=== PATIENT | female | born 1970 | race African-American/Black ===

== ENCOUNTER 2017-04-30 01:30 | Emergency (ER) | payer OTHER ==
[2017-04-30] MEDS ORDERED: Albuterol/Ipratropium 3.0-0.5 MG/3 ML Neb Soln NEB ONE (01:40)
--- NOTE | 2017-04-30 01:45 | EDM.PDOC ---
ED HPI GENERAL MEDICAL PROBLEM - General Stated Complaint: SHORTNESS OF BREATH, 24 WEEKS PREG Time Seen by Provider: 04/30/17 01:39 - History of Present Illness INITIAL COMMENTS - FREE TEXT/NARRATIVE: HISTORY AND PHYSICAL: History of present illness: Patient 47-year-old black female who is 24 weeks presents with concern of acute shortness of breath patient states she has had some coughing recently she denies abdominal pain or cramping denies chest pain denies known history of DVT or pulmonary embolism there's been no fever chills or other complaints Review of systems: As per history of present illness and below otherwise all systems reviewed and negative. Past medical history: As per history of present illness and as reviewed below otherwise noncontributory. Surgical history: As per history of present illness and as reviewed below otherwise noncontributory. Social history: No reported history of drug or alcohol abuse. Family history: As per history of present illness and as reviewed below otherwise noncontributory. Physical exam: HEENT: Atraumatic, normocephalic, pupils reactive, negative for conjunctival pallor or scleral icterus, mucous membranes moist, throat clear, neck supple, nontender, trachea midline. Lungs: Clear to auscultation, breath sounds equal bilaterally, chest nontender. Heart: S1S2, regular, negative for clicks, rubs, or JVD. Abdomen: Soft, nondistended, nontender. Negative for masses or hepatosplenomegaly. Negative for costovertebral tenderness. Pelvis: Stable nontender. Genitourinary: Deferred. Rectal: Deferred. Extremities: Atraumatic, negative for cords or calf pain. Neurovascular unremarkable. Neuro: Awake, alert, oriented. Cranial nerves II through XII unremarkable. Cerebellum unremarkable. Motor and sensory unremarkable throughout. Exam nonfocal. Diagnostics: CBC CMP PT/INR troponin BNP influenza screen d-dimer Therapeutics: Albuterol ipratropium nebulizer Impression: #1 24 week IUP #2 dyspnea Definitive disposition and diagnosis as appropriate pending reevaluation and review of above. 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 Musculoskeletal History: Reports: None Neurological History: Reports: None Psychiatric History: Reports: None Endocrine/Metabolic History: Reports: None Hematologic History: Reports: None Immunologic History: Reports: None Oncologic (Cancer) History: Reports: None Dermatologic History: Reports: None - Infectious Disease History Infectious Disease History: Reports: None - Past Surgical History Head Surgeries/Procedures: Reports: None Cardiovascular Surgical History: Reports: None Social & Family History - Family History Family Medical History: Noncontributory - Tobacco Use Smoking Status *Q: Never Smoker Second Hand Smoke Exposure: No - Caffeine Use Caffeine Use: Reports: None - Recreational Drug Use Recreational Drug Use: No ED ROS GENERAL - Review of Systems Review Of Systems: ROS reveals no pertinent complaints other than HPI. ED EXAM, GENERAL - Physical Exam Exam: See Below (See dictation) Course - Vital Signs Text/Narrative:: I discussed with patient differential diagnosis for her dyspnea including possible pulmonary embolism discussed risks and benefits for CT angiogram patient declined chest x-ray did demonstrate small infiltrate that may represent atelectasis versus infectious process patient was discharged on azithromycin ED course was unremarkable she follow-up with her doctor 1 today's return as needed discuss impression is #124 week intrauterine prancing #2 dyspnea #3 pneumonia Last Recorded V/S: Last Vital Signs Temp 36.6 C 04/30/17 03:19 Pulse 110 H 04/30/17 04:40 Resp 20 04/30/17 04:40 BP 109/74 04/30/17 04:40 Pulse Ox 98 04/30/17 04:40 - Orders/Labs/Meds Orders: Active Orders 24 hr Category Date Time Status EKG Documentation Completion [RC] STAT Care 04/30/17 01:39 Active RT Aerosol Therapy [RC] ASDIRECTED Care 04/30/17 01:40 Active Chest 1V Frontal [CR] Stat Exams 04/30/17 03:18 Taken Labs: Laboratory Tests 04/30/17 04/30/17 04/30/17 Range/Units 02:00 02:00 02:00 WBC 12.81 H (4.0-11.0) K/uL RBC 4.70 (4.30-5.90) M/uL Hgb 12.8 (12.0-16.0) g/dL Hct 35.8 L (36.0-46.0) % MCV 76.2 L (80.0-98.0) fL MCH 27.2 (27.0-32.0) pg MCHC 35.8 (31.0-37.0) g/dL RDW Std Deviation 47.1 (28.0-62.0) fl RDW Coeff of Brian 17 H (11.0-15.0) % Plt Count 246 (150-400) K/uL MPV 10.30 (7.40-12.00) fL Neut % (Auto) 78.6 (48.0-80.0) % Lymph % (Auto) 15.8 L (16.0-40.0) % [place] % (Auto) 4.8 (0.0-15.0) % Eos % (Auto) 0.7 (0.0-7.0) % Baso % (Auto) 0.1 (0.0-1.5) % Neut # (Auto) 10.1 H (1.4-5.7) K/uL Lymph # (Auto) 2.0 (0.6-2.4) K/uL [place] # (Auto) 0.6 (0.0-0.8) K/uL Eos # (Auto) 0.1 (0.0-0.7) K/uL Baso # (Auto) 0.0 (0.0-0.1) K/uL Nucleated RBC % 0.0 /100WBC Nucleated RBCs # 0 K/uL INR 0.92 (0.86-1.11) D-Dimer, Quantitative 2.96 H (0.0-0.52) mg/LFEU Sodium 136 (136-146) mmol/L Potassium 3.8 (3.5-5.1) mmol/L Chloride 105 (98-110) mmol/L Carbon Dioxide 22 (21-31) mmol/L BUN 6 (6.0-23.0) mg/dL Creatinine 0.7 (0.6-1.5) mg/dL Est Cr Clr Drug Dosing 88.44 mL/min Estimated GFR (MDRD) > 60.0 ml/min Glucose 115 H (60-110) mg/dL Calcium 9.5 (8.8-10.8) mg/dL Total Bilirubin 0.3 (0.1-1.5) mg/dL AST 20 (5-40) IU/L ALT 22 (8-54) IU/L Alkaline Phosphatase 113 (40-150) Troponin I < 0.10 (0.0-0.29) NG/ML B-Natriuretic Peptide (<100) PG/ML Total Protein 7.8 (6.0-8.0) g/dL Albumin 3.8 (3.5-5.0) g/dL Globulin 4.0 H (2.0-3.5) g/dL Albumin/Globulin Ratio 1.0 L (1.3-2.8) 04/30/17 Range/Units 02:00 WBC (4.0-11.0) K/uL RBC (4.30-5.90) M/uL Hgb (12.0-16.0) g/dL Hct (36.0-46.0) % MCV (80.0-98.0) fL MCH (27.0-32.0) pg MCHC (31.0-37.0) g/dL RDW Std Deviation (28.0-62.0) fl RDW Coeff of Brian (11.0-15.0) % Plt Count (150-400) K/uL MPV (7.40-12.00) fL Neut % (Auto) (48.0-80.0) % Lymph % (Auto) (16.0-40.0) % [place] % (Auto) (0.0-15.0) % Eos % (Auto) (0.0-7.0) % Baso % (Auto) (0.0-1.5) % Neut # (Auto) (1.4-5.7) K/uL Lymph # (Auto) (0.6-2.4) K/uL [place] # (Auto) (0.0-0.8) K/uL Eos # (Auto) (0.0-0.7) K/uL Baso # (Auto) (0.0-0.1) K/uL Nucleated RBC % /100WBC Nucleated RBCs # K/uL INR (0.86-1.11) D-Dimer, Quantitative (0.0-0.52) mg/LFEU Sodium (136-146) mmol/L Potassium (3.5-5.1) mmol/L Chloride (98-110) mmol/L Carbon Dioxide (21-31) mmol/L BUN (6.0-23.0) mg/dL Creatinine (0.6-1.5) mg/dL Est Cr Clr Drug Dosing mL/min Estimated GFR (MDRD) ml/min Glucose (60-110) mg/dL Calcium (8.8-10.8) mg/dL Total Bilirubin (0.1-1.5) mg/dL AST (5-40) IU/L ALT (8-54) IU/L Alkaline Phosphatase (40-150) Troponin I (0.0-0.29) NG/ML B-Natriuretic Peptide < 15 (<100) PG/ML Total Protein (6.0-8.0) g/dL Albumin (3.5-5.0) g/dL Globulin (2.0-3.5) g/dL Albumin/Globulin Ratio (1.3-2.8) Meds: Medications Discontinued Medications Generic Name Dose Route Start Last Admin Trade Name Freq PRN Reason Stop Dose Admin Albuterol/Ipratropium 3 ml 04/30/17 01:40 04/30/17 02:04 Duoneb 3.0-0.5 Mg/3 Ml NEB 04/30/17 01:41 3 ml ONETIME ONE Administration Departure - Departure Time of Disposition: 06:17 Disposition: Home, Self-Care 01 Condition: Good Clinical Impression: Pneumonia - Discharge Information Instructions: Shortness of Breath, [id number] Referrals: PCP,None [Primary Care Provider] - Forms: ED Department Discharge Additional Instructions: The following information is given to patients seen in the emergency department who are being discharged to home. This information is to outline your options for follow-up care. We provide all patients seen in our emergency department with a follow-up referral. The need for follow-up, as well as the timing and circumstances, are variable depending upon the specifics of your emergency department visit. If you don't have a primary care physician on staff, we will provide you with a referral. We always advise you to contact your personal physician following an emergency department visit to inform them of the circumstance of the visit and for follow-up with them and/or the need for any referrals to a consulting specialist. The emergency department will also refer you to a specialist when appropriate. This referral assures that you have the opportunity for followup care with a specialist. All of these measure are taken in an effort to provide you with optimal care, which includes your followup. Under all circumstances we always encourage you to contact your private physician who remains a resource for coordinating your care. When calling for followup care, please make the office aware that this follow-up is from your recent emergency room visit. If for any reason you are refused follow-up, please contact the [facility] emergency department at and asked to speak to the emergency department charge nurse. Azithromycin as prescribed follow-up primary medical doctor 1-2 days return as needed as discussed - My Orders Last 24 Hours: My Active Orders 04/30/17 01:39 EKG Documentation Completion [RC] STAT 04/30/17 01:40 RT Aerosol Therapy [RC] ASDIRECTED 04/30/17 03:18 Chest 1V Frontal [CR] Stat - Assessment/Plan Last 24 Hours: My Active Orders 04/30/17 01:39 EKG Documentation Completion [RC] STAT 04/30/17 01:40 RT Aerosol Therapy [RC] ASDIRECTED 04/30/17 03:18 Chest 1V Frontal [CR] Stat
[2017-04-30 02:28] LABS: CHLORIDE,CL 105 mmol/L (98-110); SODIUM,NA 136 mmol/L (136-146)
[2017-04-30 04:40] VITALS: BP 109/74
--- NOTE | 2017-04-30 17:58 | CR ---
EXAM DATE: 04/30/17 PATIENT'S AGE: 47 Patient: CHRISTEL VERAS Facility: [place], [place] Site . Site : 1970 Study: XRay Chest [id number] 3:46:49 AM Ordering Physician: Marcos Arambula Final Report: Indication: Chest pain Technique: Chest 1 view. Comparison: None Findings/impression: Prominent cardiac size. Mild pulmonary cephalization. Patchy atelectasis or infiltrate at the right lung base. No pneumothorax or effusion. Osseous structures intact. Dictated by Bibiana Markham MD @ Apr 30 2017 4:00AM (Electronic Signature) Report Signed by Proxy. ALISA
== END 2017-04-30 04:38 | disposition home or self-care (01) ==
LOC: MW.ED 01:30
DX: O99.512 Diseases of the respiratory system complicating pregnancy, second trimester (principal); J18.9 Pneumonia, unspecified organism; O10.912 Unspecified pre-existing hypertension complicating pregnancy, second trimester; Z79.899 Other long term (current) drug therapy; Z3A.24 24 weeks gestation of pregnancy
CPT/HCPCS: 36415; 71010; 71010-26; 80053; 83880; 84484; 85025; 85379; 85610; 87804; 93005; 99284; 99285-25

== ENCOUNTER 2017-05-28 18:58 | Emergency (ER) | payer OTHER ==
[2017-05-28] MEDS ORDERED: Sodium Chloride 0.9% 10 ML Syringe FLUSH PRN (19:23)
[2017-05-28] MEDS ORDERED: Sodium Chloride 0.9% 2.5 ML Syringe FLUSH PRN (19:23)
[2017-05-28] MEDS ORDERED: Sodium Chloride 0.9% 1,000 ML IV SCH (19:30)
--- NOTE | 2017-05-28 19:34 | EDM.PDOC ---
ED HPI GENERAL MEDICAL PROBLEM - General Chief Complaint: Respiratory Problem Stated Complaint: PT HAS DIFFICULTY BREATHING Time Seen by Provider: 05/28/17 19:18 - History of Present Illness INITIAL COMMENTS - FREE TEXT/NARRATIVE: HISTORY AND PHYSICAL: History of present illness: Patient's 47-year-old white female who is in her third trimester seen multiple times in the ER was recently admitted and had CT scan [place] chest for dyspnea that was negative for pulmonary embolism number were some changes reported possibly representing emphysematous type disease and/or asbestosis Review of systems: As per history of present illness and below otherwise all systems reviewed and negative. Past medical history: As per history of present illness and as reviewed below otherwise noncontributory. Surgical history: As per history of present illness and as reviewed below otherwise noncontributory. Social history: No reported history of drug or alcohol abuse. Family history: As per history of present illness and as reviewed below otherwise noncontributory. Physical exam: HEENT: Atraumatic, normocephalic, pupils reactive, negative for conjunctival pallor or scleral icterus, mucous membranes moist, throat clear, neck supple, nontender, trachea midline. Lungs: Clear to auscultation, breath sounds equal bilaterally, chest nontender. Heart: S1S2, tachycardic, regular, negative for clicks, rubs, or JVD. Abdomen: Soft, nondistended, nontender. Negative for masses or hepatosplenomegaly. Negative for costovertebral tenderness. Pelvis: Stable nontender. Genitourinary: Deferred. Rectal: Deferred. Extremities: Atraumatic, negative for cords or calf pain. Neurovascular unremarkable. Neuro: Awake, alert, anxious, oriented. Cranial nerves II through XII unremarkable. Cerebellum unremarkable. Motor and sensory unremarkable throughout. Exam nonfocal. Diagnostics: CBC CMP troponin BNP chest x-ray EKG Therapeutics: IV O2 monitor Impression: #1 third trimester #2 dyspnea Definitive disposition and diagnosis as appropriate pending reevaluation and review of above. denies pain Pain Score (Numeric/FACES): 0 - Related Data Allergies Allergy/AdvReac Type Severity Reaction Status Date / Time No Known Allergies Allergy Verified 05/28/17 19:12 Home Meds: Home Meds NIFEdipine [Procardia XL] 60 mg PO DAILY #30 tab.er 05/05/15 [Rx] Pnv No.95/Ferrous Fum/Folic AC [ Multivitamin Tablet] 1 tab PO DAILY [History] Past Medical History - Past Health History Medical/Surgical History: Denies Medical/Surgical History HEENT History: Reports: None Cardiovascular History: Reports: Hypertension Respiratory History: Reports: None Gastrointestinal History: Reports: None Genitourinary History: Reports: None 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 CONTROL History: Reports: 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 Musculoskeletal History: Reports: None Neurological History: Reports: None Psychiatric History: Reports: None Endocrine/Metabolic History: Reports: None Hematologic History: Reports: None Immunologic History: Reports: None Oncologic (Cancer) History: Reports: None Dermatologic History: Reports: None - Infectious Disease History Infectious Disease History: Reports: None - Past Surgical History Head Surgeries/Procedures: Reports: None Cardiovascular Surgical History: Reports: None Social & Family History - Family History Family Medical History: Noncontributory - Tobacco Use Smoking Status *Q: Never Smoker Second Hand Smoke Exposure: No - Caffeine Use Caffeine Use: Reports: None - Recreational Drug Use Recreational Drug Use: No ED ROS GENERAL - Review of Systems Review Of Systems: ROS reveals no pertinent complaints other than HPI. ED EXAM, GENERAL - Physical Exam Exam: See Below (See dictation) Course - Vital Signs Text/Narrative:: Patient has had an unremarkable emergency department course I spoke with multiple possible transfer centers of which [facility] and [facility] both were without beds I did speak with emergency department in [place] through their transfer center patient was graciously accepted and will be transferred via air medical Last Recorded V/S: Last Vital Signs Temp 37.2 C 05/28/17 20:16 Pulse 120 H 05/28/17 20:40 Resp 33 H 05/28/17 20:40 BP 132/67 05/28/17 20:40 Pulse Ox 96 05/28/17 20:40 - Orders/Labs/Meds Orders: Active Orders 24 hr Category Date Time Status Cardiac Monitoring [RC] . DIRECTED Care 05/28/17 19:22 Active EKG Documentation Completion [RC] STAT Care 05/28/17 19:22 Active Oxygen Therapy, ED [RC] ASDIRECTED Care 05/28/17 19:22 Active Pulse Oximetry [RC] ASDIRECTED Care 05/28/17 19:22 Active Chest 1V Frontal [CR] Stat Exams 01/19/18 19:23 Taken Sodium Chloride 0.9% [Normal Saline] 1,000 ml Med 05/28/17 19:30 Active IV STAT Sodium Chloride 0.9% [Saline Flush] Med 05/28/17 19:23 Active 10 ml FLUSH ASDIRECTED PRN Sodium Chloride 0.9% [Saline Flush] Med 05/28/17 19:23 Active 2.5 ml FLUSH ASDIRECTED PRN Saline Lock Insert [OM.PC] Stat Oth 05/28/17 19:22 Ordered Medication Orders Sodium Chloride (Normal Saline) 1,000 mls @ 125 mls/hr IV STAT MARY Last Admin: 05/28/17 19:43 Dose: 125 mls/hr Sodium Chloride (Saline Flush) 10 ml FLUSH ASDIRECTED PRN PRN Reason: Keep Vein Open Sodium Chloride (Saline Flush) 2.5 ml FLUSH ASDIRECTED PRN PRN Reason: Keep Vein Open Labs: Laboratory Tests 05/28/17 05/28/17 05/28/17 Range/Units 19:30 19:30 19:30 WBC 11.54 H (4.0-11.0) K/uL RBC 4.50 (4.30-5.90) M/uL Hgb 12.2 (12.0-16.0) g/dL Hct 33.9 L (36.0-46.0) % MCV 75.3 L (80.0-98.0) fL MCH 27.1 (27.0-32.0) pg MCHC 36.0 (31.0-37.0) g/dL RDW Std Deviation 46.2 (28.0-62.0) fl RDW Coeff of Brian 17 H (11.0-15.0) % Plt Count 251 (150-400) K/uL MPV 9.90 (7.40-12.00) fL Neut % (Auto) 73.8 (48.0-80.0) % Lymph % (Auto) 17.2 (16.0-40.0) % [place] % (Auto) 5.6 (0.0-15.0) % Eos % (Auto) 3.2 (0.0-7.0) % Baso % (Auto) 0.2 (0.0-1.5) % Neut # (Auto) 8.5 H (1.4-5.7) K/uL Lymph # (Auto) 2.0 (0.6-2.4) K/uL [place] # (Auto) 0.7 (0.0-0.8) K/uL Eos # (Auto) 0.4 (0.0-0.7) K/uL Baso # (Auto) 0.0 (0.0-0.1) K/uL Nucleated RBC % 0.0 /100WBC Nucleated RBCs # 0 K/uL Sodium 137 (136-146) mmol/L Potassium 3.9 (3.5-5.1) mmol/L Chloride 104 (98-110) mmol/L Carbon Dioxide 21 (21-31) mmol/L BUN 6 (6.0-23.0) mg/dL Creatinine 0.7 (0.6-1.5) mg/dL Est Cr Clr Drug Dosing 88.44 mL/min Estimated GFR (MDRD) > 60.0 ml/min Glucose 90 (60-110) mg/dL Calcium 9.5 (8.8-10.8) mg/dL Total Bilirubin 0.4 (0.1-1.5) mg/dL AST 18 (5-40) IU/L ALT 16 (8-54) IU/L Alkaline Phosphatase 149 (40-150) Troponin I < 0.10 (0.0-0.29) NG/ML B-Natriuretic Peptide < 15 (<100) PG/ML Total Protein 7.4 (6.0-8.0) g/dL Albumin 3.6 (3.5-5.0) g/dL Globulin 3.8 H (2.0-3.5) g/dL Albumin/Globulin Ratio 1.0 L (1.3-2.8) Urine Color Urine Appearance Urine pH (5.0-8.0) Ur Specific [place] (1.001-1.035) Urine Protein (NEGATIVE) mg/dL Urine Glucose (UA) (NEGATIVE) mg/dL Urine Ketones (NEGATIVE) mg/dL Urine Occult Blood (NEGATIVE) Urine Nitrite (NEGATIVE) Urine Bilirubin (NEGATIVE) Urine Urobilinogen (<2.0) EU/dL Ur Leukocyte Esterase (NEGATIVE) Urine RBC (0-2/HPF) Urine WBC (0-5/HPF) Ur Epithelial Cells (NONE-FEW) Urine Bacteria (NEGATIVE) 05/28/17 Range/Units 20:12 WBC (4.0-11.0) K/uL RBC (4.30-5.90) M/uL Hgb (12.0-16.0) g/dL Hct (36.0-46.0) % MCV (80.0-98.0) fL MCH (27.0-32.0) pg MCHC (31.0-37.0) g/dL RDW Std Deviation (28.0-62.0) fl RDW Coeff of Brian (11.0-15.0) % Plt Count (150-400) K/uL MPV (7.40-12.00) fL Neut % (Auto) (48.0-80.0) % Lymph % (Auto) (16.0-40.0) % [place] % (Auto) (0.0-15.0) % Eos % (Auto) (0.0-7.0) % Baso % (Auto) (0.0-1.5) % Neut # (Auto) (1.4-5.7) K/uL Lymph # (Auto) (0.6-2.4) K/uL [place] # (Auto) (0.0-0.8) K/uL Eos # (Auto) (0.0-0.7) K/uL Baso # (Auto) (0.0-0.1) K/uL Nucleated RBC % /100WBC Nucleated RBCs # K/uL Sodium (136-146) mmol/L Potassium (3.5-5.1) mmol/L Chloride (98-110) mmol/L Carbon Dioxide (21-31) mmol/L BUN (6.0-23.0) mg/dL Creatinine (0.6-1.5) mg/dL Est Cr Clr Drug Dosing mL/min Estimated GFR (MDRD) ml/min Glucose (60-110) mg/dL Calcium (8.8-10.8) mg/dL Total Bilirubin (0.1-1.5) mg/dL AST (5-40) IU/L ALT (8-54) IU/L Alkaline Phosphatase (40-150) Troponin I (0.0-0.29) NG/ML B-Natriuretic Peptide (<100) PG/ML Total Protein (6.0-8.0) g/dL Albumin (3.5-5.0) g/dL Globulin (2.0-3.5) g/dL Albumin/Globulin Ratio (1.3-2.8) Urine Color Urine Appearance CLEAR Urine pH 7.0 (5.0-8.0) Ur Specific [place] <= 1.005 (1.001-1.035) Urine Protein NEGATIVE (NEGATIVE) mg/dL Urine Glucose (UA) NEGATIVE (NEGATIVE) mg/dL Urine Ketones NEGATIVE (NEGATIVE) mg/dL Urine Occult Blood NEGATIVE (NEGATIVE) Urine Nitrite NEGATIVE (NEGATIVE) Urine Bilirubin NEGATIVE (NEGATIVE) Urine Urobilinogen 0.2 (<2.0) EU/dL Ur Leukocyte Esterase NEGATIVE (NEGATIVE) Urine RBC 0-1 (0-2/HPF) Urine WBC 0-1 (0-5/HPF) Ur Epithelial Cells FEW (NONE-FEW) Urine Bacteria RARE (NEGATIVE) Meds: Medications Generic Name Dose Route Start Last Admin Trade Name Freq PRN Reason Stop Dose Admin Sodium Chloride 1,000 mls @ 125 mls/hr 05/28/17 19:30 05/28/17 19:43 Normal Saline IV 125 mls/hr STAT MARY Administration Sodium Chloride 10 ml 05/28/17 19:23 Saline Flush FLUSH ASDIRECTED PRN Keep Vein Open Sodium Chloride 2.5 ml 05/28/17 19:23 Saline Flush FLUSH ASDIRECTED PRN Keep Vein Open Departure - Departure Time of Disposition: 21:18 Disposition: DC/Tfer to Acute Hospital 02 Condition: Good Clinical Impression: Dyspnea, Tachycardia, Third trimester - Discharge Information Referrals: PCP,None [Primary Care Provider] - Forms: ED Department Discharge - My Orders Last 24 Hours: My Active Orders 05/28/17 19:22 Cardiac Monitoring [RC] . DIRECTED EKG Documentation Completion [RC] STAT Oxygen Therapy, ED [RC] ASDIRECTED Pulse Oximetry [RC] ASDIRECTED Saline Lock Insert [OM.PC] Stat 05/28/17 19:23 Chest 1V Frontal [CR] Stat Sodium Chloride 0.9% [Saline Flush] 10 ml FLUSH ASDIRECTED PRN Sodium Chloride 0.9% [Saline Flush] 2.5 ml FLUSH ASDIRECTED PRN 05/28/17 19:30 Sodium Chloride 0.9% [Normal Saline] 1,000 ml IV STAT - Assessment/Plan Last 24 Hours: My Active Orders 05/28/17 19:22 Cardiac Monitoring [RC] . DIRECTED EKG Documentation Completion [RC] STAT Oxygen Therapy, ED [RC] ASDIRECTED Pulse Oximetry [RC] ASDIRECTED Saline Lock Insert [OM.PC] Stat 05/28/17 19:23 Chest 1V Frontal [CR] Stat Sodium Chloride 0.9% [Saline Flush] 10 ml FLUSH ASDIRECTED PRN Sodium Chloride 0.9% [Saline Flush] 2.5 ml FLUSH ASDIRECTED PRN 05/28/17 19:30 Sodium Chloride 0.9% [Normal Saline] 1,000 ml IV STAT
[2017-05-28 20:10] LABS: CHLORIDE,CL 104 mmol/L (98-110); SODIUM,NA 137 mmol/L (136-146)
[2017-05-28 20:40] VITALS: BP 132/67
--- NOTE | 2017-05-31 15:57 | CR ---
EXAM DATE: 05/28/17 PATIENT'S AGE: 47 Patient: CHRISTEL VERAS Facility: [place], [place] Site . Site : 1970 Study: XRay Chest [id number] 8:08:44 PM Ordering Physician: Doctor Moreno Final Report: INDICATIONS: Shortness of breath. TECHNIQUE: Chest 1 portable view. COMPARISON: Chest radiograph May 27, 2017. FINDINGS: No pneumothorax, pleural effusion or focal airspace consolidation. No pulmonary edema. Cardiac and mediastinal contours are within normal limits. Upper abdomen and osseous structures show no acute abnormality. IMPRESSION: Unremarkable portable chest. Dictated by Dariel Perez MD @ 05/28/2017 8:27:17 PM Dictated by: Dariel Perez MD @ 05/28/2017 20:27:25 (Electronic Signature) Report Signed by Proxy. [facility]oto
== END 2017-05-28 22:12 ==
LOC: MW.ED 18:58
DX: O99.89 Other specified diseases and conditions complicating pregnancy, childbirth and the puerperium (principal); R06.00 Dyspnea, unspecified; R00.0 Tachycardia, unspecified; O10.913 Unspecified pre-existing hypertension complicating pregnancy, third trimester; Z79.899 Other long term (current) drug therapy
CPT/HCPCS: 36415; 71045; 80053; 81001; 83880; 84484; 85025; 93005; 96360; 96361; 99285; J7040; 99284

== ENCOUNTER 2017-07-19 00:27 | Observation (INO) | payer OTHER | END 2017-07-19 02:05 | disposition home or self-care (01) | LOC: MW.OBCHECK 00:27 → MW.OB 00:57 | PROVIDERS: ADMIT Obstetrics & Gynecology; ATTEND Obstetrics & Gynecology | DX: O99.89 Other specified diseases and conditions complicating pregnancy, childbirth and the puerperium (principal); Z68.27 Body mass index [BMI] 27.0-27.9, adult | CPT/HCPCS: 59025 ==

== ENCOUNTER 2017-08-17 00:30 | Inpatient (IN) | payer OTHER ==
[2017-08-17] MEDS ORDERED: Tranexamic Acid 1,000 MG in Sodium Chloride 0.9% 100 ML IV PRN (01:16)
[2017-08-17] MEDS ORDERED: Lidocaine 1% 50 ML MDV INJECT PRN (01:16)
[2017-08-17] MEDS ORDERED: Butorphanol 1 MG/ML SDV IVPUSH PRN (01:16)
[2017-08-17] MEDS ORDERED: Misoprostol 25 MCG (1/4 of 100 MCG) Tab PO PRN (01:16)
[2017-08-17] MEDS ORDERED: Sodium Chloride 0.9% 10 ML Syringe FLUSH PRN (01:16)
[2017-08-17] MEDS ORDERED: Water For Irrigation,Sterile 1,000 ML Container IRR PRN (01:16)
[2017-08-17] MEDS ORDERED: Terbutaline 1 MG/ML SDV SUBCUT PRN (01:16)
[2017-08-17] MEDS ORDERED: Carboprost Tromethamine 250 MCG/1 ML Amp IM PRN (01:16)
[2017-08-17] MEDS ORDERED: Misoprostol 200 MCG Tab PO PRN (01:16)
[2017-08-17] MEDS ORDERED: Sodium Chloride 0.9% 2.5 ML Syringe FLUSH PRN (01:16)
[2017-08-17] MEDS ORDERED: Nalbuphine 10 MG/1 ML Vial IVPUSH PRN (01:16)
[2017-08-17] MEDS ORDERED: Methylergonovine 0.2 MG/1 ML Amp IM PRN (01:16)
[2017-08-17] MEDS ORDERED: Oxytocin/0.9 % Sodium Chloride 30 UNIT/500 ML BAG IV SCH ×2 (01:30)
[2017-08-17] MEDS: Lactated Ringers 1,000 ML IV SCH ×4 (06:05→14:18)
--- NOTE | 2017-08-17 09:30 | PCM.PREANE ---
Preanesthetic Assessment - Anesthesia/Transfusion/Family Hx Anesthesia History: Prior Anesthesia Without Reaction Transfusion History: No Prior Transfusion(s) - Review of Systems General: No Symptoms Pulmonary: No Symptoms Cardiovascular: No Symptoms Gastrointestinal: No Symptoms Neurological: No Symptoms Other: Reports: None - Physical Assessment Height: 5 ft 5 in Weight: 165.561 kg ASA Class: 3 Mental Status: Alert & Oriented x3 Airway Class: Mallampati = 3 Dentition: Reports: Normal Dentition Thyro-Mental Finger Breadths: 3 Mouth Opening Finger Breadths: 3 ROM/Head Extension: Limited/Partial Lungs: Clear to Auscultation, Normal Respiratory Effort, Decreased Breath Sounds Cardiovascular: Regular Rate, Regular Rhythm - Lab Values: Laboratory Last Values WBC 7.94 K/uL (4.0-11.0) 08/17/17 01:28 RBC 4.62 M/uL (4.30-5.90) 08/17/17 01:28 Hgb 12.3 g/dL (12.0-16.0) 08/17/17 01:28 Hct 34.8 % (36.0-46.0) L 08/17/17 01:28 MCV 75.3 fL (80.0-98.0) L 08/17/17 01:28 MCH 26.6 pg (27.0-32.0) L 08/17/17 01:28 MCHC 35.3 g/dL (31.0-37.0) 08/17/17 01:28 RDW Std Deviation 48.3 fl (28.0-62.0) 08/17/17 01:28 RDW Coeff of Brian 18 % (11.0-15.0) H 08/17/17 01:28 Plt Count 249 K/uL (150-400) 08/17/17 01:28 MPV 10.60 fL (7.40-12.00) 08/17/17 01:28 Blood Type O POSITIVE 08/17/17 01:28 Antibody Screen NEGATIVE 08/17/17 01:28 - Allergies Allergies/Adverse Reactions: Allergies Allergy/AdvReac Type Severity Reaction Status Date / Time No Known Allergies Allergy Verified 05/28/17 19:12 - Acknowledgements Anesthesia Type Planned: Epidural Pt an Appropriate Candidate for the Planned Anesthesia: Yes Alternatives and Risks of Anesthesia Discussed w Pt/Guardian: Yes Pt/Guardian Understands and Agrees with Anesthesia Plan: Yes PreAnesthesia Questionnaire - Past Health History Medical/Surgical History: Denies Medical/Surgical History HEENT History: Reports: None Cardiovascular History: Reports: Hypertension (Chronic) Respiratory History: Reports: Sleep Apnea, Other (See Below) (Reactive airway disease, PE has been ruled out) Gastrointestinal History: Reports: GERD Genitourinary History: Reports: None [employer]ING [employer]PER[employer]OR History: Reports: : 3 Para: 2 LMP (Approximate): Musculoskeletal History: Reports: None Neurological History: Reports: None Psychiatric History: Reports: None Endocrine/Metabolic History: Reports: Obesity/BMI 30+ (Super Morbid Obesity) Hematologic History: Reports: None Immunologic History: Reports: None Oncologic (Cancer) History: Reports: None Dermatologic History: Reports: None - Infectious Disease History Infectious Disease History: Reports: None - Past Surgical History Head Surgeries/Procedures: Reports: None Cardiovascular Surgical History: Reports: None - SUBSTANCE USE Smoking Status *Q: Never Smoker Tobacco Use Within Last Twelve Months: No Second Hand Smoke Exposure: No Recreational Drug Use History: No - HOME MEDS Home Medications: Home Meds NIFEdipine [Procardia XL] 60 mg PO DAILY #30 tab.er 05/05/15 [Rx] Pnv No.95/Ferrous Fum/Folic AC [ Multivitamin Tablet] 1 tab PO DAILY [History] - CURRENT (IN HOUSE) MEDS Current Meds: Current Medications Butorphanol Tartrate (Stadol) 1 mg IVPUSH ASDIRECTED PRN PRN Reason: Pain Carboprost Tromethamine (Hemabate Ds) 250 mcg IM ASDIRECTED PRN PRN Reason: Post Hemorrhage Lactated Ringer's (Ringers, Lactated) 1,000 mls @ 150 mls/hr IV ASDIRECTED [facility]ARY Last Admin: 08/17/17 06:05 Dose: 150 mls/hr Oxytocin/Sodium Chloride (Oxytocin 30 Unit/500 Ml-Ns) 30 unit in 500 mls @ 2 mls/hr IV TITRATE [facility]ARY; Protocol Last Titration: 08/17/17 08:23 Dose: 6 munits/min, 6 mls/hr Oxytocin/Sodium Chloride (Oxytocin 30 Unit/500 Ml-Ns) 30 unit in 500 mls @ 999 mls/hr IV TITRATE [facility]ARY Tranexamic Acid 1,000 mg/ (Sodium Chloride) 110 mls @ 660 mls/hr IV ONETIME PRN PRN Reason: Bleeding Lidocaine HCl (Xylocaine 1%) 50 ml INJECT .ONCE PRN PRN Reason: Laceration repair Methylergonovine Maleate (Methergine) 0.2 mg IM ASDIRECTED PRN PRN Reason: Post Hemorrhage Misoprostol (Cytotec) 200 mcg PO .ONCE PRN PRN Reason: Post Hemorrhage Misoprostol (Cytotec) 25 mcg PO Q4H PRN PRN Reason: Cervical Ripening Last Admin: 08/17/17 01:35 Dose: 25 mcg Nalbuphine HCl (Nubain) 10 mg IVPUSH ASDIRECTED PRN PRN Reason: Pain (severe 7-10) Sodium Chloride (Saline Flush) 10 ml FLUSH ASDIRECTED PRN PRN Reason: Keep Vein Open Sodium Chloride (Saline Flush) 2.5 ml FLUSH ASDIRECTED PRN PRN Reason: Keep Vein Open Sterile Water (Sterile Water For Irrigation) 1,000 ml IRR ASDIRECTED PRN PRN Reason: delivery Terbutaline Sulfate (Brethine) 0.25 mg SUBCUT ASDIRECTED PRN PRN Reason: Tacysystole
[2017-08-17] MEDS ORDERED: Lactated Ringers 1,000 ML IRR SCH (12:45)
[2017-08-17] MEDS ORDERED: Docusate Sodium 100 MG Cap PO PRN (16:30)
[2017-08-17] MEDS ORDERED: Benzocaine/Menthol 20%-0.5% Spray 78 GM Cannister TOP PRN (16:30)
[2017-08-17] MEDS ORDERED: Witch Hazel Medicated Pads 40/Jar TOP PRN (16:30)
[2017-08-17] MEDS ORDERED: Lanolin 100% Cream 7 GM Tube TOP PRN (16:30)
[2017-08-17] MEDS ORDERED: Bisacodyl 10 MG Supp RECTAL PRN (16:30)
[2017-08-17] MEDS ORDERED: Ibuprofen 400 MG Tab PO PRN (16:30)
[2017-08-17] MEDS ORDERED: Morphine 10 MG/ML Syringe ONE (18:52)
[2017-08-17] MEDS ORDERED: Promethazine 25 MG/ML SDV IM ONE (19:00)
[2017-08-17] MEDS ORDERED: Meperidine PF 50 MG/ML Syringe IVPUSH ONE (19:00)
[2017-08-17] MEDS ORDERED: ceFAZolin 2 GM in Premix Bag 1 BAG IV ONE (19:01)
[2017-08-17] MEDS ORDERED: Morphine 10 MG/ML Syringe IM ONE (19:02)
[2017-08-17] MEDS ORDERED: ceFAZolin/Dextrose,Iso-Osmotic 2 GM/50 ML Duplex Bag IV ONE (19:03)
[2017-08-17] MEDS: Acetaminophen 500 MG Tab PO PRN (22:47)
[2017-08-17] MEDS: oxyCODONE 5 MG Tab PO PRN (22:48)
[2017-08-18] MEDS: oxyCODONE 5 MG Tab PO PRN ×5 (01:15→21:44)
[2017-08-18] MEDS: Acetaminophen 500 MG Tab PO PRN ×2 (03:07→11:25)
[2017-08-18] MEDS: Ibuprofen 800 MG Tab PO PRN ×3 (06:07→21:44)
--- NOTE | 2017-08-18 07:16 | PCM48HPAN ---
Post Anesthesia Note - EVALUATION WITHIN 48HRS OF ANESTHETIC Vital Signs in Normal Range: Yes Patient Participated in Evaluation: Yes Respiratory Function Stable: Yes Airway Patent: Yes Cardiovascular Function Stable: Yes Hydration Status Stable: Yes Pain Control Satisfactory: Yes Nausea and Vomiting Control Satisfactory: Yes Mental Status Recovered: Yes Resp Rate: 20 - COMMENTS/OBSERVATIONS Free Text/Narrative:: Sitting up in bed and denies any complaints at this time.
[2017-08-18] MEDS ORDERED: NIFEdipine 30 MG Tab.ER PO SCH (09:00)
--- NOTE | 2017-08-18 22:15 | PCM.PNPP ---
- General Info Date of Service: 08/18/17 Admission Dx/Problem (Free Text): 47 yo s/p complicated with PPH recieved Methergine , Pitocin, transexamic acid , hemabate Subjective Update: Patient denies any complains , she has ambulated and voided , she has normal lochia Functional Status: Reports: Pain Controlled, Tolerating Diet, Ambulating, Urinating - Review of Systems General: Reports: No Symptoms HEENT: Reports: No Symptoms Pulmonary: Reports: No Symptoms Cardiovascular: Reports: No Symptoms Gastrointestinal: Reports: No Symptoms Genitourinary: Reports: No Symptoms Musculoskeletal: Reports: No Symptoms Skin: Reports: No Symptoms Neurological: Reports: No Symptoms Psychiatric: Reports: No Symptoms - General Info Date of Service: 08/18/17 - Patient Data Vital Signs - Most Recent: Last Vital Signs Temp 36.6 C 08/18/17 20:07 Pulse 115 H 08/18/17 20:07 Resp 16 08/18/17 20:07 BP 123/59 L 08/18/17 20:07 Pulse Ox 97 08/18/17 20:07 Weight - Most Recent: 165.561 kg Lab Results - Last 24 Hours: Laboratory Results - last 24 hr 08/18/17 Range/Units 05:38 Hgb 9.7 L (12.0-16.0) g/dL Hct 27.3 L (36.0-46.0) % Med Orders - Current: Current Medications Acetaminophen (Tylenol Extra Strength) 500 mg PO Q4H PRN PRN Reason: Pain Last Admin: 08/18/17 03:07 Dose: 500 mg Acetaminophen (Tylenol Extra Strength) 1,000 mg PO Q4H PRN PRN Reason: Pain Last Admin: 08/18/17 11:25 Dose: 1,000 mg Benzocaine/Menthol (Dermoplast Pain Relief 20%-0.5% [place]) 78 gm TOP ASDIRECTED PRN PRN Reason: Perineal Comfort Measure Bisacodyl (Dulcolax) 10 mg RECTAL .ONCE PRN PRN Reason: Constipation Butorphanol Tartrate (Stadol) 1 mg IVPUSH ASDIRECTED PRN PRN Reason: Pain Carboprost Tromethamine (Hemabate Ds) 250 mcg IM ASDIRECTED PRN PRN Reason: Post Hemorrhage Last Admin: 08/17/17 18:55 Dose: 250 mcg Docusate Sodium (Colace) 100 mg PO BID PRN PRN Reason: Constipation Emollient Ointment (Lansinoh Hpa) 0 gm TOP ASDIRECTED PRN PRN Reason: Sore Nipples Lactated Ringer's (Ringers, Lactated) 1,000 mls @ 150 mls/hr IV ASDIRECTED [facility] Last Admin: 08/17/17 14:18 Dose: 150 mls/hr Oxytocin/Sodium Chloride (Oxytocin 30 Unit/500 Ml-Ns) 30 unit in 500 mls @ 2 mls/hr IV TITRATE [facility]; Protocol Last Titration: 08/17/17 15:46 Dose: 0 munits/min, 0 mls/hr Oxytocin/Sodium Chloride (Oxytocin 30 Unit/500 Ml-Ns) 30 unit in 500 mls @ 999 mls/hr IV TITRATE [facility] Last Admin: 08/17/17 18:55 Dose: 999 mls/hr Tranexamic Acid 1,000 mg/ (Sodium Chloride) 110 mls @ 660 mls/hr IV ONETIME PRN PRN Reason: Bleeding Last Admin: 08/17/17 19:15 Dose: 660 mls/hr Lactated Ringer's (Ringers, Lactated) 1,000 mls @ 500 mls/hr IRR ASDIRECTED [facility] Last Admin: 08/17/17 13:07 Dose: 500 mls/hr Ibuprofen (Motrin) 400 mg PO Q4H PRN PRN Reason: Pain Ibuprofen (Motrin) 800 mg PO Q6H PRN PRN Reason: Pain Last Admin: 08/18/17 21:44 Dose: 800 mg Lidocaine HCl (Xylocaine 1%) 50 ml INJECT .ONCE PRN PRN Reason: Laceration repair Methylergonovine Maleate (Methergine) 0.2 mg IM ASDIRECTED PRN PRN Reason: Post Hemorrhage Last Admin: 08/17/17 18:45 Dose: 0.2 mg Misoprostol (Cytotec) 200 mcg PO .ONCE PRN PRN Reason: Post Hemorrhage Misoprostol (Cytotec) 25 mcg PO Q4H PRN PRN Reason: Cervical Ripening Last Admin: 08/17/17 01:35 Dose: 25 mcg Nalbuphine HCl (Nubain) 10 mg IVPUSH ASDIRECTED PRN PRN Reason: Pain (severe 7-10) Nifedipine (Procardia Xl) 60 mg PO DAILY [facility] Last Admin: 08/18/17 09:41 Dose: 60 mg Oxycodone HCl (Oxycodone) 5 mg PO Q2H PRN PRN Reason: Pain Last Admin: 08/18/17 21:44 Dose: 5 mg Sodium Chloride (Saline Flush) 10 ml FLUSH ASDIRECTED PRN PRN Reason: Keep Vein Open Sodium Chloride (Saline Flush) 2.5 ml FLUSH ASDIRECTED PRN PRN Reason: Keep Vein Open Sterile Water (Sterile Water For Irrigation) 1,000 ml IRR ASDIRECTED PRN PRN Reason: delivery Terbutaline Sulfate (Brethine) 0.25 mg SUBCUT ASDIRECTED PRN PRN Reason: Tacysystole Witch Kaylee (Tucks) 1 pad TOP ASDIRECTED PRN PRN Reason: comfort care Discontinued Medications Cefazolin Sodium/Dextrose (Ancef) Confirm Administered Dose 2 gm IV .STK-MED ONE Stop: 08/17/17 19:04 Fentanyl/Bupivacaine HCl (Gnrxxooi-Rydnt-Db 2 Mcg/Ml-0.125%) Confirm Administered Dose 100 mls @ as directed EP .STK-MED ONE Stop: 08/17/17 09:28 Cefazolin Sodium/Dextrose 2 gm (/ Premix) 50 mls @ 100 mls/hr IV ONETIME ONE Stop: 08/17/17 19:30 Last Admin: 08/17/17 19:08 Dose: 100 mls/hr Meperidine HCl (Demerol) 75 mg IVPUSH ONETIME ONE Stop: 08/17/17 19:01 Last Admin: 08/17/17 19:07 Dose: 75 mg Morphine Sulfate (Morphine) Confirm Administered Dose 10 mg .ROUTE .STK-MED ONE Stop: 08/17/17 18:53 Morphine Sulfate (Morphine) 6 mg IM ONETIME ONE Stop: 08/17/17 19:03 Promethazine HCl (Phenergan) 25 mg IM ONETIME ONE Stop: 08/17/17 19:01 Last Admin: 08/17/17 19:07 Dose: 25 mg - Infant Interaction Infant Disposition, : [place] at Bedside Support Person: - Recovery Exam Fundal Tone: Firm Fundal Level: 1 Fingerbreadths Below Umbilicus Fundal Placement: Midline Lochia Amount: Scant Lochia Color: Rubra/Red Perineum Description: Intact, Minimal Bruising/Swelling Episiotomy/Laceration: None Bladder Status: Voiding Urinary Elimination: Voided - Exam General: Alert, Oriented HEENT: Pupils Equal Neck: Supple Lungs: Clear to Auscultation Cardiovascular: Regular Rate, Regular Rhythm GI/Abdominal Exam: Normal Bowel Sounds Extremities: Normal Inspection Skin: Warm Wound/Incisions: Healing Well Neurological: No New Focal Deficit - Problem List & Annotations (1) Vaginal delivery SNOMED Code(s): 982617676 Code(s): O80 - ENCOUNTER FOR FULL-TERM UNCOMPLICATED DELIVERY Status: Acute Current Visit: Yes (2) hemorrhage SNOMED Code(s): 17389192 Code(s): O72.1 - OTHER IMMEDIATE HEMORRHAGE Status: Acute Current Visit: Yes Qualifiers: hemorrhage type: other immediate Qualified Code(s): O72.1 - Other immediate hemorrhage - Problem List Review Problem List Initiated/Reviewed/Updated: Yes - My Orders Last 24 Hours: My Active Orders 08/18/17 09:00 NIFEdipine [Procardia XL] 60 mg PO DAILY - Assessment Assessment:: 34yo s/p complicated by PPH stable , normal lochia , VSS- wnl - Plan Plan:: Routine care Will start procardia Monitor VSS and Pad count
[2017-08-19] MEDS: oxyCODONE 5 MG Tab PO PRN (02:06)
[2017-08-19] MEDS: Acetaminophen 500 MG Tab PO PRN (02:07)
--- NOTE | 2017-08-19 03:50 | OR ---
SURGEON: FORD MACDONALD DATE OF PROCEDURE: 08/17/2017 PREOPERATIVE DIAGNOSES: 34yo( as per patient) G3, P2-0-0-2 at 39 weeks 2 days admitted for induction of labor secondary to chronic hypertension, chronic proteinuria, morbid obesity, GBS negative. POSTOPERATIVE DIAGNOSIS: Status post normal spontaneous vaginal delivery. ANESTHESIA: Epidural. EBL: 300. FINDING: A live female delivered at 1602 hours, score 6 and 9. Three- vessel cord noted. Intact perineum. There was cord around the neck. The weight was 2840 g. BRIEF HISTORY: The patient is a 47-year-old, G3, P2-0-0-2 at 39 weeks 2 days who was for induction of labor secondary to chronic hypertension, well controlled on nifedipine. She also had chronic proteinuria. VE C/L/P long on admission. She received Cytotec. After Cytotec, the patient was started on Pitocin. She made changes up to 3, 50, -3. AROM was done. IUPC was placed. After IUPC was placed, Pitocin was titrated up. However, during labor course, she was noted to have some late deceleration. She was repositioned, given IV fluid bolus,and oxygen, the fetus recovered and tracing became Cat 1. She had normal labor progress. The patient became fully dilated. The patient was encouraged to push. PROCEDURE IN DETAIL: With the patient in dorsal lithotomy position, she was encouraged to push. The patient had good pushing effort. She delivered the head, followed by the shoulders. The Cord noted around the neck was reduced. After the shoulders were delivered, the body was delivered. The infant was placed on the maternal abdomen and delayed cord clamping was observed. Pitocin was running.The cord was clamped and cut. The placenta was delivered via controlled cord traction. Cord blood gases were obtained. The uterus was massaged. Hemostasis was noted.The perineum was inspected and intact perineum was noted. The patient was left with in stable condition. RENAE VIDALES /[id number] ALISA
--- NOTE | 2017-08-19 07:02 | PCM.PNPP ---
- General Info Date of Service: 08/19/17 Admission Dx/Problem (Free Text): 47 yo s/p complicated with PPH recieved Methergine , Pitocin, transexamic acid , hemabate , PPD2 Subjective Update: Denies any complains , Minimal lochia Functional Status: Reports: Pain Controlled, Tolerating Diet, Ambulating, Urinating - Review of Systems General: Reports: No Symptoms HEENT: Reports: No Symptoms Pulmonary: Reports: No Symptoms Cardiovascular: Reports: No Symptoms Gastrointestinal: Reports: No Symptoms Genitourinary: Reports: No Symptoms Musculoskeletal: Reports: No Symptoms Skin: Reports: No Symptoms Neurological: Reports: No Symptoms Psychiatric: Reports: No Symptoms - General Info Date of Service: 08/19/17 - Patient Data Vital Signs - Most Recent: Last Vital Signs Temp 36.8 C 08/19/17 04:20 Pulse 103 H 08/19/17 04:20 Resp 16 08/19/17 04:20 BP 107/74 08/19/17 04:20 Pulse Ox 98 08/19/17 04:20 Weight - Most Recent: 165.561 kg Med Orders - Current: Current Medications Acetaminophen (Tylenol Extra Strength) 500 mg PO Q4H PRN PRN Reason: Pain Last Admin: 08/19/17 02:07 Dose: 500 mg Acetaminophen (Tylenol Extra Strength) 1,000 mg PO Q4H PRN PRN Reason: Pain Last Admin: 08/18/17 11:25 Dose: 1,000 mg Benzocaine/Menthol (Dermoplast Pain Relief 20%-0.5% [place]) 78 gm TOP ASDIRECTED PRN PRN Reason: Perineal Comfort Measure Bisacodyl (Dulcolax) 10 mg RECTAL .ONCE PRN PRN Reason: Constipation Butorphanol Tartrate (Stadol) 1 mg IVPUSH ASDIRECTED PRN PRN Reason: Pain Carboprost Tromethamine (Hemabate Ds) 250 mcg IM ASDIRECTED PRN PRN Reason: Post Hemorrhage Last Admin: 08/17/17 18:55 Dose: 250 mcg Docusate Sodium (Colace) 100 mg PO BID PRN PRN Reason: Constipation Emollient Ointment (Lansinoh Hpa) 0 gm TOP ASDIRECTED PRN PRN Reason: Sore Nipples Lactated Ringer's (Ringers, Lactated) 1,000 mls @ 150 mls/hr IV ASDIRECTED [facility] Last Admin: 08/17/17 14:18 Dose: 150 mls/hr Oxytocin/Sodium Chloride (Oxytocin 30 Unit/500 Ml-Ns) 30 unit in 500 mls @ 2 mls/hr IV TITRATE [facility]; Protocol Last Titration: 08/17/17 15:46 Dose: 0 munits/min, 0 mls/hr Oxytocin/Sodium Chloride (Oxytocin 30 Unit/500 Ml-Ns) 30 unit in 500 mls @ 999 mls/hr IV TITRATE [facility] Last Admin: 08/17/17 18:55 Dose: 999 mls/hr Tranexamic Acid 1,000 mg/ (Sodium Chloride) 110 mls @ 660 mls/hr IV ONETIME PRN PRN Reason: Bleeding Last Admin: 08/17/17 19:15 Dose: 660 mls/hr Lactated Ringer's (Ringers, Lactated) 1,000 mls @ 500 mls/hr IRR ASDIRECTED [facility] Last Admin: 08/17/17 13:07 Dose: 500 mls/hr Ibuprofen (Motrin) 400 mg PO Q4H PRN PRN Reason: Pain Ibuprofen (Motrin) 800 mg PO Q6H PRN PRN Reason: Pain Last Admin: 08/18/17 21:44 Dose: 800 mg Lidocaine HCl (Xylocaine 1%) 50 ml INJECT .ONCE PRN PRN Reason: Laceration repair Methylergonovine Maleate (Methergine) 0.2 mg IM ASDIRECTED PRN PRN Reason: Post Hemorrhage Last Admin: 08/17/17 18:45 Dose: 0.2 mg Misoprostol (Cytotec) 200 mcg PO .ONCE PRN PRN Reason: Post Hemorrhage Misoprostol (Cytotec) 25 mcg PO Q4H PRN PRN Reason: Cervical Ripening Last Admin: 08/17/17 01:35 Dose: 25 mcg Nalbuphine HCl (Nubain) 10 mg IVPUSH ASDIRECTED PRN PRN Reason: Pain (severe 7-10) Nifedipine (Procardia Xl) 60 mg PO DAILY [facility] Last Admin: 08/18/17 09:41 Dose: 60 mg Oxycodone HCl (Oxycodone) 5 mg PO Q2H PRN PRN Reason: Pain Last Admin: 08/19/17 02:06 Dose: 5 mg Sodium Chloride (Saline Flush) 10 ml FLUSH ASDIRECTED PRN PRN Reason: Keep Vein Open Sodium Chloride (Saline Flush) 2.5 ml FLUSH ASDIRECTED PRN PRN Reason: Keep Vein Open Sterile Water (Sterile Water For Irrigation) 1,000 ml IRR ASDIRECTED PRN PRN Reason: delivery Terbutaline Sulfate (Brethine) 0.25 mg SUBCUT ASDIRECTED PRN PRN Reason: Tacysystole Witch Kaylee (Tucks) 1 pad TOP ASDIRECTED PRN PRN Reason: comfort care Discontinued Medications Cefazolin Sodium/Dextrose (Ancef) Confirm Administered Dose 2 gm IV .STK-MED ONE Stop: 08/17/17 19:04 Fentanyl/Bupivacaine HCl (Jezehvlv-Ddjgh-Gx 2 Mcg/Ml-0.125%) Confirm Administered Dose 100 mls @ as directed EP .STK-MED ONE Stop: 08/17/17 09:28 Cefazolin Sodium/Dextrose 2 gm (/ Premix) 50 mls @ 100 mls/hr IV ONETIME ONE Stop: 08/17/17 19:30 Last Admin: 08/17/17 19:08 Dose: 100 mls/hr Meperidine HCl (Demerol) 75 mg IVPUSH ONETIME ONE Stop: 08/17/17 19:01 Last Admin: 08/17/17 19:07 Dose: 75 mg Morphine Sulfate (Morphine) Confirm Administered Dose 10 mg .ROUTE .STK-MED ONE Stop: 08/17/17 18:53 Morphine Sulfate (Morphine) 6 mg IM ONETIME ONE Stop: 08/17/17 19:03 Promethazine HCl (Phenergan) 25 mg IM ONETIME ONE Stop: 08/17/17 19:01 Last Admin: 08/17/17 19:07 Dose: 25 mg - Infant Interaction Disposition, : [place] at Bedside Support Person: - Recovery Exam Fundal Tone: Firm Fundal Level: 1 Fingerbreadths Below Umbilicus Fundal Placement: Midline Lochia Amount: Scant Lochia Color: Rubra/Red Perineum Description: Intact, Minimal Bruising/Swelling Episiotomy/Laceration: None Bladder Status: Voiding Urinary Elimination: Voided - Exam General: Alert, Oriented HEENT: Pupils Equal Neck: Supple Lungs: Clear to Auscultation Cardiovascular: Regular Rate, Regular Rhythm Extremities: Normal Inspection Skin: Warm Wound/Incisions: Healing Well Neurological: No New Focal Deficit Psy/Mental Status: Alert - Problem List & Annotations (1) Vaginal delivery SNOMED Code(s): 289726323 Code(s): O80 - ENCOUNTER FOR FULL-TERM UNCOMPLICATED DELIVERY Status: Acute Current Visit: Yes (2) hemorrhage SNOMED Code(s): 66594577 Code(s): O72.1 - OTHER IMMEDIATE HEMORRHAGE Status: Acute Current Visit: Yes Qualifiers: hemorrhage type: other immediate Qualified Code(s): O72.1 - Other immediate hemorrhage - Problem List Review Problem List Initiated/Reviewed/Updated: Yes - My Orders Last 24 Hours: My Active Orders 08/18/17 09:00 NIFEdipine [Procardia XL] 60 mg PO DAILY 08/19/17 22:16 Ready for Discharge [RC] PER UNIT ROUTINE - Assessment Assessment:: 34yo s/p complicated by PPH stable , normal lochia , VSS- wnl , PPD 2 - Plan Plan:: Discharge home
[2017-08-19] MEDS: Ibuprofen 800 MG Tab PO PRN (07:36)
[2017-08-19] MEDS ORDERED: NIFEdipine 30 MG Tab.ER PO SCH (09:00)
[2017-08-19 09:08] VITALS: BP 149/78
== END 2017-08-19 09:55 | disposition home or self-care (01) | DRG 774 ==
LOC: MW.OBCHECK 00:30 → MW.OB 00:35 → MW.OBCHECK 01:16 → OBSVTOIN 16:02 → MW.OB 22:56
PROVIDERS: ADMIT Obstetrics & Gynecology; ATTEND Obstetrics & Gynecology
PROC: 10E0XZZ Delivery of Products of Conception, External Approach (ICD-10-PCS; principal; 2017-08-17)
PROC: 10907ZC Drainage of Amniotic Fluid, Therapeutic from Products of Conception, Via Natural or Artificial Opening (ICD-10-PCS; 2017-08-17)
PROC: 3E0P7VZ Introduction of Hormone into Female Reproductive, Via Natural or Artificial Opening (ICD-10-PCS; 2017-08-17)
PROC: 10H07YZ Insertion of Other Device into Products of Conception, Via Natural or Artificial Opening (ICD-10-PCS; 2017-08-17)
DX: O99.214 Obesity complicating childbirth (principal); O10.92 Unspecified pre-existing hypertension complicating childbirth; Z68.44 Body mass index [BMI] 60.0-69.9, adult; Z37.0 Single live birth; E66.01 Morbid (severe) obesity due to excess calories; Z3A.39 39 weeks gestation of pregnancy; O69.81X0 Labor and delivery complicated by cord around neck, without compression, not applicable or unspecified; O76 Abnormality in fetal heart rate and rhythm complicating labor and delivery; O72.1 Other immediate postpartum hemorrhage
CPT/HCPCS: 36415; 59025; 59409; 85014; 85018; 85027; 85384; 85610; 85730; A9270-GY; J0690; J2175; J2210; J2550; J2590; J7030; J7120

== ENCOUNTER 2017-08-20 22:01 | Observation (INO) | payer OTHER ==
--- NOTE | 2017-08-20 22:15 | EDM.PDOC ---
ED HPI GENERAL MEDICAL PROBLEM - General Chief Complaint: Cardiovascular Problem Stated Complaint: CHEST PAIN Time Seen by Provider: 08/20/17 22:12 - History of Present Illness INITIAL COMMENTS - FREE TEXT/NARRATIVE: HISTORY AND PHYSICAL: History of present illness: Patient is a 47-year-old black female who is 3 days with his head chronic dyspnea and has been extensively worked up in to date has not received a definitive diagnosis patient is well known to me she is seen by myself during her and multiple occasions and did get admitted on one occasion got a CT angiogram on another occasion and was transferred on another occasion. I reviewed records from [place] in which she was evaluated by pulmonology felt might be a reactive airway component she is currently on inhalers at home. Review of systems: As per history of present illness and below otherwise all systems reviewed and negative. Past medical history: As per history of present illness and as reviewed below otherwise noncontributory. Surgical history: As per history of present illness and as reviewed below otherwise noncontributory. Social history: No reported history of drug or alcohol abuse. Family history: As per history of present illness and as reviewed below otherwise noncontributory. Physical exam: HEENT: Atraumatic, normocephalic, pupils reactive, negative for conjunctival pallor or scleral icterus, mucous membranes moist, throat clear, neck supple, nontender, trachea midline. Lungs: Diminished no rhonchi crackles or wheezing noted, breath sounds equal bilaterally, chest nontender. Heart: S1S2, tachycardic regular, negative for clicks, rubs, or JVD. Abdomen: Soft, nondistended, nontender. Negative for masses or hepatosplenomegaly. Negative for costovertebral tenderness. Pelvis: Stable nontender. Genitourinary: Deferred. Rectal: Deferred. Extremities: Atraumatic, negative for cords or calf pain. Neurovascular unremarkable. Neuro: Awake, alert, oriented. Cranial nerves II through XII unremarkable. Cerebellum unremarkable. Motor and sensory unremarkable throughout. Exam nonfocal. Diagnostics: CBC CMP PT/INR troponin BNP ABG chest x-ray EKG Therapeutics: IV O2 monitor Impression: #1 chronic intermittent dyspnea #2 3 days #3 rule out obstructive lung disease #4 tachycardia Definitive disposition and diagnosis as appropriate pending reevaluation and review of above. no pain Pain Score (Numeric/FACES): 0 - Related Data Allergies Allergy/AdvReac Type Severity Reaction Status Date / Time No Known Allergies Allergy Verified 08/20/17 22:07 Home Meds: Home Meds Pnv No.95/Ferrous Fum/Folic AC [ Multivitamin Tablet] 1 tab PO DAILY [History] NIFEdipine [Procardia XL] 30 mg PO DAILY 08/20/17 [History] Past Medical History - Past Health History Medical/Surgical History: Denies Medical/Surgical History HEENT History: Reports: None Cardiovascular History: Reports: Hypertension (Chronic) Respiratory History: Reports: Sleep Apnea, Other (See Below) (Reactive airway disease, PE has been ruled out) Gastrointestinal History: Reports: GERD Genitourinary History: Reports: None [employer] History: Reports: Musculoskeletal History: Reports: None Neurological History: Reports: None Psychiatric History: Reports: None Endocrine/Metabolic History: Reports: Obesity/BMI 30+ (Super Morbid Obesity) Hematologic History: Reports: None Immunologic History: Reports: None Oncologic (Cancer) History: Reports: None Dermatologic History: Reports: None - Infectious Disease History Infectious Disease History: Reports: None - Past Surgical History Head Surgeries/Procedures: Reports: None Cardiovascular Surgical History: Reports: None Social & Family History - Family History Family Medical History: Noncontributory - Tobacco Use Smoking Status *Q: Never Smoker Second Hand Smoke Exposure: No - Caffeine Use Caffeine Use: Reports: Tea - Recreational Drug Use Recreational Drug Use: No ED ROS GENERAL - Review of Systems Review Of Systems: ROS reveals no pertinent complaints other than HPI. ED EXAM, GENERAL - Physical Exam Exam: See Below (See dictation) Course - Vital Signs Last Recorded V/S: Last Vital Signs Temp 36.4 C 08/20/17 22:07 Pulse 130 H 08/20/17 22:07 Resp 20 08/20/17 22:07 BP 129/59 L 08/20/17 22:07 Pulse Ox 98 08/20/17 22:07 - Orders/Labs/Meds Orders: Active Orders 24 hr Category Date Time Status EKG 12 Lead [EKG Documentation Completion] [RC] STAT Care 08/20/17 22:05 Active Chest 1V Frontal [CR] Stat Exams 08/20/17 22:05 Taken Labs: Laboratory Tests 08/20/17 08/20/17 08/20/17 Range/Units 22:12 22:12 22:12 WBC 11.94 H (4.0-11.0) K/uL RBC 3.24 L (4.30-5.90) M/uL Hgb 8.7 L (12.0-16.0) g/dL Hct 24.8 L (36.0-46.0) % MCV 76.5 L (80.0-98.0) fL MCH 26.9 L (27.0-32.0) pg MCHC 35.1 (31.0-37.0) g/dL RDW Std Deviation 52.0 (28.0-62.0) fl RDW Coeff of Brian 19 H (11.0-15.0) % Plt Count 280 (150-400) K/uL MPV 9.90 (7.40-12.00) fL Add Manual Diff YES Neutrophils % (Manual) 72 (48.0-80.0) % Band Neutrophils % 2 % Lymphocytes % (Manual) 20 (16.0-40.0) % Monocytes % (Manual) 5 (0.0-15.0) % Eosinophils % (Manual) 1 (0.0-7.0) % Nucleated RBC % 0.5 /100WBC Absolute Seg Neuts 8.6 H (1.4-5.7) Band Neutrophils # 0.2 Lymphocytes # (Manual) 2.4 (0.6-2.4) Monocytes # (Manual) 0.6 (0.0-0.8) Eosinophils # (Manual) 0.1 (0.0-0.7) Nucleated RBCs # 0 K/uL ABG pH (7.35-7.45) ABG pCO2 (35-45) mmHG ABG pO2 (75-100) mmHG ABG HCO3 (22-26) mEq/L ABG Total CO2 ABG Base Excess (-2.0-2.0) Sodium 141 (136-145) mmol/L Potassium 3.2 L (3.5-5.1) mmol/L Chloride 105 (98-107) mmol/L Carbon Dioxide 24.3 (21.0-32.0) mmol/L BUN 8 (7.0-18.0) mg/dL Creatinine 1.1 H (0.6-1.0) mg/dL Est Cr Clr Drug Dosing 56.28 mL/min Estimated GFR (MDRD) > 60.0 ml/min Glucose 172 H (74-106) mg/dL Calcium 9.2 (8.5-10.1) mg/dL Total Bilirubin 0.1 L (0.2-1.0) mg/dL AST 69 H (15-37) IU/L ALT 65 H (14-63) IU/L Alkaline Phosphatase 170 H (46-116) U/L CK-MB (CK-2) 0.7 (0-3.6) ng/mL Troponin I < 0.050 (0.000-0.056) ng/mL B-Natriuretic Peptide 145 H (<100) PG/ML Total Protein 7.0 (6.4-8.2) g/dL Albumin 2.4 L (3.4-5.0) g/dL Globulin 4.6 H (2.0-3.5) g/dL Albumin/Globulin Ratio 0.5 L (1.3-2.8) / Range/Units 22:20 WBC (4.0-11.0) K/uL RBC (4.30-5.90) M/uL Hgb (12.0-16.0) g/dL Hct (36.0-46.0) % MCV (80.0-98.0) fL MCH (27.0-32.0) pg MCHC (31.0-37.0) g/dL RDW Std Deviation (28.0-62.0) fl RDW Coeff of Brian (11.0-15.0) % Plt Count (150-400) K/uL MPV (7.40-12.00) fL Add Manual Diff Neutrophils % (Manual) (48.0-80.0) % Band Neutrophils % % Lymphocytes % (Manual) (16.0-40.0) % Monocytes % (Manual) (0.0-15.0) % Eosinophils % (Manual) (0.0-7.0) % Nucleated RBC % /100WBC Absolute Seg Neuts (1.4-5.7) Band Neutrophils # Lymphocytes # (Manual) (0.6-2.4) Monocytes # (Manual) (0.0-0.8) Eosinophils # (Manual) (0.0-0.7) Nucleated RBCs # K/uL ABG pH 7.474 H (7.35-7.45) ABG pCO2 30 L (35-45) mmHG ABG pO2 64 L (75-100) mmHG ABG HCO3 22 (22-26) mEq/L ABG Total CO2 21.1 ABG Base Excess -0.8 (-2.0-2.0) Sodium (136-145) mmol/L Potassium (3.5-5.1) mmol/L Chloride (98-107) mmol/L Carbon Dioxide (21.0-32.0) mmol/L BUN (7.0-18.0) mg/dL Creatinine (0.6-1.0) mg/dL Est Cr Clr Drug Dosing mL/min Estimated GFR (MDRD) ml/min Glucose (74-106) mg/dL Calcium (8.5-10.1) mg/dL Total Bilirubin (0.2-1.0) mg/dL AST (15-37) IU/L ALT (14-63) IU/L Alkaline Phosphatase (46-116) U/L CK-MB (CK-2) (0-3.6) ng/mL Troponin I (0.000-0.056) ng/mL B-Natriuretic Peptide (<100) PG/ML Total Protein (6.4-8.2) g/dL Albumin (3.4-5.0) g/dL Globulin (2.0-3.5) g/dL Albumin/Globulin Ratio (1.3-2.8) Departure - Departure Time of Disposition: 23:21 Disposition: Refer to Observation Condition: Fair Clinical Impression: Dyspnea, Tachycardia Referrals: PCP,None [Primary Care Provider] - Forms: ED Department Discharge - My Orders Last 24 Hours: My Active Orders 08/20/17 22:05 EKG 12 Lead [EKG Documentation Completion] [RC] STAT Chest 1V Frontal [CR] Stat - Assessment/Plan Last 24 Hours: My Active Orders 08/20/17 22:05 EKG 12 Lead [EKG Documentation Completion] [RC] STAT Chest 1V Frontal [CR] Stat
[2017-08-20 22:56] LABS: CHLORIDE,CL 105 mmol/L (98-107); SODIUM,NA 141 mmol/L (136-145)
[2017-08-20] MEDS ORDERED: methylPREDNISolone Sodium Succinate 125 MG/2 ML SDV IVPUSH ONE (23:12)
[2017-08-20] MEDS ORDERED: Albuterol/Ipratropium 3.0-0.5 MG/3 ML Neb Soln NEB ONE (23:30)
[2017-08-21] MEDS ORDERED: Acetaminophen 325 MG Tab PO PRN (00:24)
[2017-08-21] MEDS ORDERED: Potassium Chloride 20 MEQ Tab.ER PO ONE (00:25)
[2017-08-21] MEDS: methylPREDNISolone Sodium Succinate 125 MG/2 ML SDV IVPUSH SCH ×2 (05:04→10:15)
[2017-08-21 06:52] LABS: CHLORIDE,CL 104 mmol/L (98-107); SODIUM,NA 141 mmol/L (136-145)
[2017-08-21] MEDS: Albuterol/Ipratropium 3.0-0.5 MG/3 ML Neb Soln NEB SCH ×2 (07:19→11:32)
[2017-08-21 08:10] VITALS: BP 151/94
[2017-08-21] MEDS ORDERED: NIFEdipine 30 MG Tab.ER PO SCH (09:00)
--- NOTE | 2017-08-21 11:37 | PCM.HP ---
H&P History of Present Illness - General Admit Problem/Dx: Admission Diagnosis/Problem Admission Diagnosis/Problem Dyspnea - History of Present Illness Initial Comments - Free Text/Narative: 47 yo female who sis three days post- who presents to the ED with complaints of shortness of breath. Patient reports that at night she just could not get enough air. During her she was worked up by cardiology and pulmonology. She is on inhalers for reactive airway disease and the plan was to have PFTs after delivery. She states her prior doctors thougth it was her wieght and that was causing her dyspnea. headache Pain Score (Numeric/FACES): 4 - Related Data Allergies/Adverse Reactions: Allergies Allergy/AdvReac Type Severity Reaction Status Date / Time No Known Allergies Allergy Verified 08/20/17 22:07 Home Medications: Home Meds Pnv No.95/Ferrous Fum/Folic AC [ Multivitamin Tablet] 1 tab PO DAILY [History] NIFEdipine [Procardia XL] 30 mg PO DAILY 08/20/17 [History] Albuterol [IJD: Albuterol HFA] 1 puff INH Q6HR #8 gm 08/21/17 [Rx] Ipratropium [Atrovent HFA] 2 puff INH Q4H PRN 08/21/17 [History] Prednisone [IJD: predniSONE] 40 mg PO WITHBREAKFAST #6 tab 08/21/17 [Rx] Past Medical History - Past Health History Medical/Surgical History: Denies Medical/Surgical History HEENT History: Reports: None Cardiovascular History: Reports: Hypertension Respiratory History: Reports: Sleep Apnea, Other (See Below) Gastrointestinal History: Reports: GERD Genitourinary History: Reports: None [employer] History: Reports: Musculoskeletal History: Reports: None Neurological History: Reports: None Psychiatric History: Reports: None Endocrine/Metabolic History: Reports: Obesity/BMI 30+ Hematologic History: Reports: None Immunologic History: Reports: None Oncologic (Cancer) History: Reports: None Dermatologic History: Reports: None - Infectious Disease History Infectious Disease History: Reports: None - Past Surgical History Head Surgeries/Procedures: Reports: None Cardiovascular Surgical History: Reports: None Social & Family History - Family History Family Medical History: Noncontributory - Tobacco Use Smoking Status *Q: Never Smoker Second Hand Smoke Exposure: No - Caffeine Use Caffeine Use: Reports: None - Recreational Drug Use Recreational Drug Use: No H&P Review of Systems - Review of Systems: Review Of Systems: ROS reveals no pertinent complaints other than HPI. Exam - Exam Exam: See Below - Vital Signs Vital Signs: Last Vital Signs Temp 36.2 C 08/21/17 08:00 Pulse 107 H 08/21/17 08:00 Resp 20 08/21/17 08:00 BP 151/94 H 08/21/17 08:09 Pulse Ox 95 08/21/17 08:00 Weight: 163.8 kg - Exam General: Alert, Oriented Lungs: Clear to Auscultation, Normal Respiratory Effort. No: Crackles, Rales, Wheezing Cardiovascular: Regular Rate, Regular Rhythm GI/Abdominal Exam: Normal Bowel Sounds, Soft, Non-Tender, No Distention Extremities: Non-Tender, No Pedal Edema Skin: Warm, Dry, Intact Neurological: No: Focal Deficit - Patient Data Lab Results Last 24 hrs: Laboratory Results - last 24 hr 08/20/17 08/20/17 08/20/17 Range/Units 22:12 22:12 22:12 WBC 11.94 H (4.0-11.0) K/uL RBC 3.24 L (4.30-5.90) M/uL Hgb 8.7 L (12.0-16.0) g/dL Hct 24.8 L (36.0-46.0) % MCV 76.5 L (80.0-98.0) fL MCH 26.9 L (27.0-32.0) pg MCHC 35.1 (31.0-37.0) g/dL RDW Std Deviation 52.0 (28.0-62.0) fl RDW Coeff of Brian 19 H (11.0-15.0) % Plt Count 280 (150-400) K/uL MPV 9.90 (7.40-12.00) fL Neut % (Auto) (48.0-80.0) % Lymph % (Auto) (16.0-40.0) % [place] % (Auto) (0.0-15.0) % Eos % (Auto) (0.0-7.0) % Baso % (Auto) (0.0-1.5) % Neut # (Auto) (1.4-5.7) K/uL Lymph # (Auto) (0.6-2.4) K/uL [place] # (Auto) (0.0-0.8) K/uL Eos # (Auto) (0.0-0.7) K/uL Baso # (Auto) (0.0-0.1) K/uL Add Manual Diff YES Neutrophils % (Manual) 72 (48.0-80.0) % Band Neutrophils % 2 % Lymphocytes % (Manual) 20 (16.0-40.0) % Monocytes % (Manual) 5 (0.0-15.0) % Eosinophils % (Manual) 1 (0.0-7.0) % Nucleated RBC % 0.5 /100WBC Absolute Seg Neuts 8.6 H (1.4-5.7) Band Neutrophils # 0.2 Lymphocytes # (Manual) 2.4 (0.6-2.4) Monocytes # (Manual) 0.6 (0.0-0.8) Eosinophils # (Manual) 0.1 (0.0-0.7) Nucleated RBCs # 0 K/uL ABG pH (7.35-7.45) ABG pCO2 (35-45) mmHG ABG pO2 (75-100) mmHG ABG HCO3 (22-26) mEq/L ABG Total CO2 ABG Base Excess (-2.0-2.0) Sodium 141 (136-145) mmol/L Potassium 3.2 L (3.5-5.1) mmol/L Chloride 105 (98-107) mmol/L Carbon Dioxide 24.3 (21.0-32.0) mmol/L BUN 8 (7.0-18.0) mg/dL Creatinine 1.1 H (0.6-1.0) mg/dL Est Cr Clr Drug Dosing 56.28 mL/min Estimated GFR (MDRD) > 60.0 ml/min Glucose 172 H (74-106) mg/dL Calcium 9.2 (8.5-10.1) mg/dL Total Bilirubin 0.1 L (0.2-1.0) mg/dL AST 69 H (15-37) IU/L ALT 65 H (14-63) IU/L Alkaline Phosphatase 170 H (46-116) U/L CK-MB (CK-2) 0.7 (0-3.6) ng/mL Troponin I < 0.050 (0.000-0.056) ng/mL B-Natriuretic Peptide 145 H (<100) PG/ML Total Protein 7.0 (6.4-8.2) g/dL Albumin 2.4 L (3.4-5.0) g/dL Globulin 4.6 H (2.0-3.5) g/dL Albumin/Globulin Ratio 0.5 L (1.3-2.8) 08/20/17 08/21/17 08/21/17 Range/Units 22:20 05:45 05:45 WBC 10.53 (4.0-11.0) K/uL RBC 3.61 L (4.30-5.90) M/uL Hgb 9.5 L (12.0-16.0) g/dL Hct 27.4 L (36.0-46.0) % MCV 75.9 L (80.0-98.0) fL MCH 26.3 L (27.0-32.0) pg MCHC 34.7 (31.0-37.0) g/dL RDW Std Deviation 51.5 (28.0-62.0) fl RDW Coeff of Brian 19 H (11.0-15.0) % Plt Count 317 (150-400) K/uL MPV 10.40 (7.40-12.00) fL Neut % (Auto) 85.3 H (48.0-80.0) % Lymph % (Auto) 13.3 L (16.0-40.0) % [place] % (Auto) 0.9 (0.0-15.0) % Eos % (Auto) 0.3 (0.0-7.0) % Baso % (Auto) 0.2 (0.0-1.5) % Neut # (Auto) 9.0 H (1.4-5.7) K/uL Lymph # (Auto) 1.4 (0.6-2.4) K/uL [place] # (Auto) 0.1 (0.0-0.8) K/uL Eos # (Auto) 0.0 (0.0-0.7) K/uL Baso # (Auto) 0.0 (0.0-0.1) K/uL Add Manual Diff Neutrophils % (Manual) (48.0-80.0) % Band Neutrophils % % Lymphocytes % (Manual) (16.0-40.0) % Monocytes % (Manual) (0.0-15.0) % Eosinophils % (Manual) (0.0-7.0) % Nucleated RBC % 0.0 /100WBC Absolute Seg Neuts (1.4-5.7) Band Neutrophils # Lymphocytes # (Manual) (0.6-2.4) Monocytes # (Manual) (0.0-0.8) Eosinophils # (Manual) (0.0-0.7) Nucleated RBCs # 0 K/uL ABG pH 7.474 H (7.35-7.45) ABG pCO2 30 L (35-45) mmHG ABG pO2 64 L (75-100) mmHG ABG HCO3 22 (22-26) mEq/L ABG Total CO2 21.1 ABG Base Excess -0.8 (-2.0-2.0) Sodium 141 (136-145) mmol/L Potassium 4.0 (3.5-5.1) mmol/L Chloride 104 (98-107) mmol/L Carbon Dioxide 24.7 (21.0-32.0) mmol/L BUN 7 (7.0-18.0) mg/dL Creatinine 0.7 (0.6-1.0) mg/dL Est Cr Clr Drug Dosing 88.44 mL/min Estimated GFR (MDRD) > 60.0 ml/min Glucose 141 H (74-106) mg/dL Calcium 9.6 (8.5-10.1) mg/dL Total Bilirubin (0.2-1.0) mg/dL AST (15-37) IU/L ALT (14-63) IU/L Alkaline Phosphatase (46-116) U/L CK-MB (CK-2) (0-3.6) ng/mL Troponin I (0.000-0.056) ng/mL B-Natriuretic Peptide (<100) PG/ML Total Protein (6.4-8.2) g/dL Albumin (3.4-5.0) g/dL Globulin (2.0-3.5) g/dL Albumin/Globulin Ratio (1.3-2.8) Result Diagrams: 08/21/17 05:45 04/14/18 05:45 Problem List Initiated/Reviewed/Updated: Yes Orders Last 24hrs: Active Orders 24 hr Category Date Time Status Patient Status [ADT] Stat ADT 08/20/17 23:23 Active RT Aerosol Therapy [RC] ASDIRECTED Care 08/20/17 23:30 Active RT Aerosol Therapy [RC] ASDIRECTED Care 08/21/17 00:24 Active Ready for Discharge [RC] PER UNIT ROUTINE Care 08/21/17 11:31 Ordered Bank Officer Discontinue [Cardiac Monitoring Care 08/21/17 11:11 Active Discontinue] [RC] Click to Edit Telemetry Monitoring [Cardiac Monitoring] [RC] Q8H Care 08/20/17 23:30 Active Regular Diet [DIET] Diet 08/21/17 Breakfast Active Chest 1V Frontal [CR] Stat Exams 08/20/17 22:05 Taken Acetaminophen [Tylenol] Med 08/21/17 00:24 Active 650 mg PO Q4H PRN Albuterol/Ipratropium [DuoNeb 3.0-0.5 MG/3 ML] Med 08/21/17 06:00 Active 3 ml NEB Q6HRRT NIFEdipine [Procardia XL] Med 08/21/17 09:00 Active 30 mg PO DAILY methylPREDNISolone Sod Succ [Solu-MEDROL] Med 08/21/17 05:00 Active 125 mg IVPUSH Q6H Sequential Compression Device [OM.PC] Routine Oth 08/21/17 00:27 Ordered Medication Orders Acetaminophen (Tylenol) 650 mg PO Q4H PRN PRN Reason: Pain Last Admin: 08/21/17 00:53 Dose: 650 mg Albuterol/Ipratropium (Duoneb 3.0-0.5 Mg/3 Ml) 3 ml NEB Q6HRRT [facility] Last Admin: 08/21/17 11:32 Dose: 3 ml Admin: 08/21/17 07:19 Dose: 3 ml Methylprednisolone Sodium Succinate (Solu-Medrol) 125 mg IVPUSH Q6H [facility] Last Admin: 08/21/17 10:15 Dose: 125 mg Admin: 08/21/17 05:04 Dose: 125 mg Nifedipine (Procardia Xl) 30 mg PO DAILY [facility] Last Admin: 08/21/17 08:09 Dose: 30 mg Assessment/Plan Comment:: 47 yo female who was observed overnight due to dyspnea. She is feeling much better this morning. She was treated with solumedrol and duonbes. I suspect she likely has bronchitis. Patient is requesting discharge. She is to follow up with her state archivist and her PCP/
--- NOTE | 2017-08-23 09:38 | CR ---
EXAM DATE: 08/20/17 PATIENT'S AGE: 47 Patient: CHRISTEL VERAS Facility: [place], [place] Site . Site : 1970 Study: XRay Chest [id number] 10:[id number] PM Ordering Physician: Doctor Moreno Final Report: INDICATION: Shortness of breath, dizziness and palpitations. TECHNIQUE: Chest 1 views COMPARISON: May 28, 2017 FINDINGS: Cardiovascular and mediastinum: Heart size and vasculature are normal in caliber and appearance. Lungs and pleural spaces: Lungs are clear. No sign of infiltrate or mass. No sign of pleural effusion. No pneumothorax. Bones and soft tissues: No significant findings. IMPRESSION: No acute findings and no significant changes from the prior exam. Dictated by Anup Alaniz MD @ Aug 20 2017 10:46PM (Electronic Signature) Report Signed by Proxy. ALISA
== END 2017-08-21 11:48 | disposition home or self-care (01) ==
LOC: MW.ED 22:01 → MW.ICU 23:23
PROVIDERS: ADMIT Internal Medicine; ATTEND Internal Medicine
DX: O99.53 Diseases of the respiratory system complicating the puerperium (principal); R06.00 Dyspnea, unspecified; O16.5 Unspecified maternal hypertension, complicating the puerperium; G47.30 Sleep apnea, unspecified; O99.63 Diseases of the digestive system complicating the puerperium; K21.9 Gastro-esophageal reflux disease without esophagitis; O99.215 Obesity complicating the puerperium; E66.9 Obesity, unspecified; Z79.899 Other long term (current) drug therapy; Z68.30 Body mass index [BMI] 30.0-30.9, adult
CPT/HCPCS: 36415; 36600; 71045; 80048; 80053; 82553; 82803; 83880; 84484; 85025; 93005; 94640; 96374; 99285; A9270; J2930; 96376; 99284; G0378

== ENCOUNTER 2020-01-23 20:46 | Emergency (ER) | payer OTHER ==
--- NOTE | 2020-01-23 21:33 | EDM.PDOC ---
ED HPI GENERAL MEDICAL PROBLEM - General Chief Complaint: Fever Stated Complaint: FEVER/BODY ACHES/WEAKNESS Time Seen by Provider: 01/23/20 21:09 Source of Information: Reports: Patient History Limitations: Reports: No Limitations - History of Present Illness INITIAL COMMENTS - FREE TEXT/NARRATIVE: Patient presents reporting a 2-day history of subjective fever, cough, weakness, dizzy, body aches and today, some ear fullness. No sore throat, shortness of breath, chest pain, runny nose. He has a history of controlled hypertension and obesity. She does not smoke. Left Middle Back Pain Score (Numeric/FACES): 4 - Related Data Allergies Allergy/AdvReac Type Severity Reaction Status Date / Time No Known Allergies Allergy Verified 05/05/19 08:10 Home Meds: Home Meds Aspirin [Low Dose Aspirin EC] 81 mg PO DAILY 05/05/19 [History] Losartan/Hydrochlorothiazide [Losartan-HCTZ 50-12.5 MG] 1 tab PO DAILY 05/05/19 [History] NIFEdipine [Nifedipine ER] 60 mg PO DAILY 05/05/19 [History] Omeprazole 40 mg PO DAILY 05/05/19 [History] Past Medical History - Past Health History Medical/Surgical History: Denies Medical/Surgical History HEENT History: Reports: None Cardiovascular History: Reports: Hypertension Respiratory History: Reports: Sleep Apnea, Other (See Below) Gastrointestinal History: Reports: GERD Genitourinary History: Reports: None 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: Musculoskeletal History: Reports: None Neurological History: Reports: None Psychiatric History: Reports: None Endocrine/Metabolic History: Reports: Obesity/BMI 30+ Hematologic History: Reports: None Immunologic History: Reports: None Oncologic (Cancer) History: Reports: None Dermatologic History: Reports: None - Infectious Disease History Infectious Disease History: Reports: Chicken Pox - Past Surgical History Head Surgeries/Procedures: Reports: None Cardiovascular Surgical History: Reports: None Social & Family History - Family History Family Medical History: Noncontributory - Caffeine Use Caffeine Use: Reports: None ED ROS ENT - Review of Systems Review Of Systems: Comprehensive ROS is negative, except as noted in HPI. ED EXAM, ENT - Physical Exam Exam: See Below Exam Limited By: No Limitations General Appearance: Alert, No Apparent Distress Ears: Normal External Exam Nose: Normal Inspection Mouth/Throat: Normal Inspection Head: Atraumatic, Normocephalic Neck: Normal Inspection Respiratory/Chest: No Respiratory Distress, Lungs Clear, Normal Breath Sounds Cardiovascular: Normal Peripheral Pulses, Regular Rate, Rhythm, No Edema GI/Abdominal: Normal Bowel Sounds, Soft Back: Normal Inspection Extremities: Normal Inspection, Normal Range of Motion Neurological: Alert, Oriented Psychiatric: Normal Affect, Normal Mood Skin: Warm, Dry, Intact, Normal Color, No Rash Lymphatic: No Adenopathy Course - Vital Signs Last Recorded V/S: Last Vital Signs Temp 36.3 C 01/23/20 21:56 Pulse 86 01/23/20 21:56 Resp 16 01/23/20 21:56 BP 126/85 01/23/20 21:56 Pulse Ox 98 01/23/20 21:56 - Orders/Labs/Meds Labs: Laboratory Tests 01/23/20 01/23/20 01/23/20 Range/Units 21:30 21:32 21:32 WBC 4.59 (4.0-11.0) K/uL RBC 5.18 (4.30-5.90) M/uL Hgb 14.3 (12.0-16.0) g/dL Hct 39.5 (36.0-46.0) % MCV 76.3 L (80.0-98.0) fL MCH 27.6 (27.0-32.0) pg MCHC 36.2 (31.0-37.0) g/dL RDW Std Deviation 45.6 (28.0-62.0) fl RDW Coeff of Brian 16 H (11.0-15.0) % Plt Count 188 (150-400) K/uL MPV 11.60 (7.40-12.00) fL Neut % (Auto) 22.5 L (48.0-80.0) % Lymph % (Auto) 67.3 H (16.0-40.0) % [place] % (Auto) 10.0 (0.0-15.0) % Eos % (Auto) 0.0 (0.0-7.0) % Baso % (Auto) 0.2 (0.0-1.5) % Neut # (Auto) 1.0 L (1.4-5.7) K/uL Lymph # (Auto) 3.1 H (0.6-2.4) K/uL [place] # (Auto) 0.5 (0.0-0.8) K/uL Eos # (Auto) 0.0 (0.0-0.7) K/uL Baso # (Auto) 0.0 (0.0-0.1) K/uL Nucleated RBC % 0.0 /100WBC Nucleated RBCs # 0 K/uL Sodium 137 (136-145) mmol/L Potassium 3.4 L (3.5-5.1) mmol/L Chloride 102 (98-107) mmol/L Carbon Dioxide 23.9 (21.0-32.0) mmol/L BUN 13 (7.0-18.0) mg/dL Creatinine 1.1 H (0.6-1.0) mg/dL Est Cr Clr Drug Dosing TNP Estimated GFR (MDRD) > 60.0 ml/min Glucose 88 (74-106) mg/dL Calcium 8.8 (8.5-10.1) mg/dL Total Bilirubin 0.2 (0.2-1.0) mg/dL AST 36 (15-37) IU/L ALT 53 (14-63) IU/L Alkaline Phosphatase 92 (46-116) U/L Total Protein 7.9 (6.4-8.2) g/dL Albumin 3.4 (3.4-5.0) g/dL Globulin 4.5 H (2.6-4.0) g/dL Albumin/Globulin Ratio 0.8 L (0.9-1.6) SARS CoV-2 RNA Rapid AARTI POSITIVE H (NEGATIVE) Departure - Departure Time of Disposition: 22:19 Disposition: Home, Self-Care 01 Condition: Good Clinical Impression: COVID-19 - Discharge Information Referrals: PCP,Not In Area [Primary Care Provider] - [facility] [Outside] [facility] [Outside] Forms: ED Department Discharge Additional Instructions: The following information is given to patients seen in the emergency department who are being discharged to home. This information is to outline your options f or follow-up care. We provide all patients seen in our emergency department with a follow-up referral. The need for follow-up, as well as the timing and circumstances, are variable depending upon the specifics of your emergency department visit. If you don't have a primary care physician on staff, we will provide you with a referral. We always advise you to contact your personal physician following an emergency department visit to inform them of the circumstance of the visit and for follow-up with them and/or the need for any referrals to a consulting specialist. The emergency department will also refer you to a specialist when appropriate. This referral assures that you have the opportunity for follow-up care with a specialist. All of these measure are taken in an effort to provide you with optimal care, which includes your follow-up. Under all circumstances we always encourage you to contact your private physician who remains a resource for coordinating your care. When calling for follow-up care, please make the office aware that this follow-up is from your recent emergency room visit. If for any reason you are refused follow-up, please contact the [facility] Emergency Department at and asked to speak to the emergency department charge nurse. 1. Drink plenty of fluids and rest 2. Home quarantine for 14 days 3. Tylenol extra strength every 6 hours as needed for body aches or ibuprofen 2-3 tabs 3 times daily as needed for body aches 4. Seek prompt medical attention for shortness of breath. Sepsis Event Note (ED) - Focused Exam Vital Signs: Vital Signs Temp Pulse Resp BP Pulse Ox 01/23/20 21:56 36.3 C 86 16 126/85 98
[2020-01-23 22:00] LABS: BLOOD UREA NITROGEN,BUN 13 mg/dL (7.0-18.0); CARBON DIOXIDE,CO2 23.9 mmol/L (21.0-32.0); CHLORIDE,CL 102 mmol/L (98-107); GLUCOSE RANDOM 88 mg/dL (74-106); POTASSIUM,K 3.4 mmol/L (3.5-5.1); SODIUM,NA 137 mmol/L (136-145)
[2020-01-23] MEDS ORDERED: Dexamethasone 10 MG/ML SDV IM ONE (22:21)
[2020-01-23 22:51] VITALS: BP 130/78; PULSE 88
== END 2020-01-23 22:50 | disposition home or self-care (01) ==
LOC: MW.ED 20:46
DX: U07.1 COVID-19 (principal); I10 Essential (primary) hypertension; K21.9 Gastro-esophageal reflux disease without esophagitis; E66.9 Obesity, unspecified; Z79.82 Long term (current) use of aspirin; Z79.899 Other long term (current) drug therapy; Z68.43 Body mass index [BMI] 50.0-59.9, adult
CPT/HCPCS: 36415; 80053; 85025; 99283; U0002

== ENCOUNTER 2021-05-08 08:00 | Emergency (ER) | payer BC, OTHER ==
[2021-05-08] MEDS ORDERED: Sodium Chloride 0.9% 2.5 ML Syringe FLUSH PRN (08:42)
[2021-05-08] MEDS ORDERED: Sodium Chloride 0.9% 10 ML Syringe FLUSH PRN (08:42)
[2021-05-08] MEDS ORDERED: Ketorolac 30 MG/ML SDV IVPUSH ONE (08:43)
[2021-05-08] MEDS ORDERED: Ondansetron 4 MG/2 ML SDV IVPUSH ONE (08:43)
[2021-05-08] MEDS ORDERED: Sodium Chloride 0.9% 1,000 ML IV ONE (08:51)
--- NOTE | 2021-05-08 08:52 | EDM.PDOC ---
ED HPI GENERAL MEDICAL PROBLEM - General Chief Complaint: Back Pain or Injury Stated Complaint: RIB PAIN Time Seen by Provider: 05/08/21 08:00 - History of Present Illness INITIAL COMMENTS - FREE TEXT/NARRATIVE: History of present illness: [] Patient has left flank pain. It is associated with diaphoresis. There is no nausea and vomiting. It is severe. Nothing makes it better or worse. Onset yesterday ago. Constant pain and nothing makes it better or worse. She has a little bit of burning when she urinates. Patient has negative history of kidney stones. She does have a family history having known that her father has a kidney stone. The patient has an IUD and denies . Patient went to the chiropractor for back pain yesterday and after manipulation it was considerably worse. Review of systems: As per history of present illness and below otherwise all systems reviewed and negative. Past medical history: As per history of present illness and as reviewed below otherwise noncontributory. Surgical history: As per history of present illness and as reviewed below otherwise noncontributory. Social history: No reported history of drug or alcohol abuse. Family history: As per history of present illness and as reviewed below otherwise noncontributory. Physical exam: Constitutional - well developed, well-nourished and in no acute distress HEENT - normocephalic, no evidence of trauma - external nose and mouth normal - no mass in neck and no JVD - mucosae moist EYES - full EOM, PERRL, no icterus - no evidence of inflammation, injection, or drainage Respiratory - no respiratory distress, equal bilateral expansion, lungs clear to auscultation and no abnormal lung sounds Cardiovascular - Regular Rhythm with S1 and S2 appreciated and no murmur, gallop or rub. GI -tender left upper quadrant and left CVA. No rash. Abdomen soft without distension or organomegaly - normal bowel sounds - no guard or rebound Musculoskeletal no gross deformity of long bones or joints - no tenderness, swelling or edema Neurologic - Alert and oriented times four - CN II-XII grossly intact - motor sensory and coordination symmetrically normal Psychiatric - appropriate mood and affect with normal thought content Hematologic - No petechiae or purpura - mucosa appropriate color and sclera not pale - normal nail bed color and refill Integument - no rash or evidence of trauma - normal turgor Diagnostics: [] Therapeutics: [] Impression: [] Plan: [] Definitive disposition and diagnosis as appropriate pending reevaluation and review of above. Left Flank Pain Score (Numeric/FACES): 9 - Related Data Allergies Allergy/AdvReac Type Severity Reaction Status Date / Time No Known Allergies Allergy Verified 05/08/21 08:02 Home Meds: Home Meds Aspirin [Low Dose Aspirin EC] 81 mg PO DAILY 05/05/19 [History] Losartan/Hydrochlorothiazide [Losartan-HCTZ 50-12.5 MG] 1 tab PO DAILY 05/05/19 [History] NIFEdipine [Nifedipine ER] 60 mg PO DAILY 05/05/19 [History] Cyclobenzaprine [Flexeril] 10 mg PO TID PRN #14 tab 05/08/21 [Rx] Past Medical History - Past Health History Medical/Surgical History: Denies Medical/Surgical History HEENT History: Reports: None Cardiovascular History: Reports: Hypertension Respiratory History: Reports: Sleep Apnea, Other (See Below) Gastrointestinal History: Reports: GERD Genitourinary History: Reports: None 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: Musculoskeletal History: Reports: None Neurological History: Reports: None Psychiatric History: Reports: None Endocrine/Metabolic History: Reports: Obesity/BMI 30+ Hematologic History: Reports: None Immunologic History: Reports: None Oncologic (Cancer) History: Reports: None Dermatologic History: Reports: None - Infectious Disease History Infectious Disease History: Reports: Chicken Pox - Past Surgical History Head Surgeries/Procedures: Reports: None Cardiovascular Surgical History: Reports: None GI Surgical History: Reports: Bariatric Procedure Social & Family History - Family History Family Medical History: No Pertinent Family History - Tobacco Use Tobacco Use Status *Q: Never Tobacco User - Caffeine Use Caffeine Use: Reports: None - Recreational Drug Use Recreational Drug Use: No ED ROS GENERAL - Review of Systems Review Of Systems: Comprehensive ROS is negative, except as noted in HPI. ED EXAM, GENERAL - Physical Exam Exam: See Below Free Text/Narrative:: My physical exam is in the HPI Course - Vital Signs Last Recorded V/S: Last Vital Signs Temp 36.8 C 05/08/21 08:04 Pulse 77 05/08/21 08:04 Resp 16 05/08/21 08:04 BP 151/92 H 05/08/21 08:04 Pulse Ox - Orders/Labs/Meds Orders: Active Orders 24 hr Category Date Time Status Sodium Chloride 0.9% [Saline Flush] Med 05/08/21 08:42 Active 10 ml FLUSH ASDIRECTED PRN Sodium Chloride 0.9% [Saline Flush] Med 05/08/21 08:42 Active 2.5 ml FLUSH ASDIRECTED PRN Saline Lock Insert [OM.PC] Stat Oth 05/08/21 08:42 Ordered Medication Orders Sodium Chloride (Sodium Chloride 0.9% 10 Ml Syringe) 10 ml FLUSH ASDIRECTED PRN PRN Reason: Keep Vein Open Last Admin: 05/08/21 09:20 Dose: 10 ml Documented by: CHRISTOPHER Sodium Chloride (Sodium Chloride 0.9% 2.5 Ml Syringe) 2.5 ml FLUSH ASDIRECTED PRN PRN Reason: Keep Vein Open Last Admin: 05/08/21 09:20 Dose: 2.5 ml Documented by: CHRISTOPHER Labs: Laboratory Tests 05/08/21 05/08/21 05/08/21 Range/Units 08:15 08:15 08:15 WBC 5.88 (4.0-11.0) K/uL RBC 4.83 (4.30-5.90) M/uL Hgb 13.4 (12.0-16.0) g/dL Hct 38.0 (36.0-46.0) % MCV 78.7 L (80.0-98.0) fL MCH 27.7 (27.0-32.0) pg MCHC 35.3 (31.0-37.0) g/dL RDW Std Deviation 47.6 (28.0-62.0) fl RDW Coeff of Brian 17 H (11.0-15.0) % Plt Count 245 (150-400) K/uL MPV 11.30 (7.40-12.00) fL Neut % (Auto) 40.0 L (48.0-80.0) % Lymph % (Auto) 50.3 H (16.0-40.0) % [place] % (Auto) 7.5 (0.0-15.0) % Eos % (Auto) 1.9 (0.0-7.0) % Baso % (Auto) 0.3 (0.0-1.5) % Neut # (Auto) 2.4 (1.4-5.7) K/uL Lymph # (Auto) 3.0 H (0.6-2.4) K/uL [place] # (Auto) 0.4 (0.0-0.8) K/uL Eos # (Auto) 0.1 (0.0-0.7) K/uL Baso # (Auto) 0.0 (0.0-0.1) K/uL Nucleated RBC % 0.0 /100WBC Nucleated RBCs # 0 K/uL Sodium 140 (136-145) mmol/L Potassium 4.1 (3.5-5.1) mmol/L Chloride 105 (98-107) mmol/L Carbon Dioxide 29.1 (21.0-32.0) mmol/L BUN 13 (7.0-18.0) mg/dL Creatinine 0.9 (0.6-1.0) mg/dL Est Cr Clr Drug Dosing 65.80 mL/min Estimated GFR (MDRD) > 60.0 ml/min Glucose 91 (74-106) mg/dL Calcium 9.6 (8.5-10.1) mg/dL Total Bilirubin 0.7 (0.2-1.0) mg/dL AST 22 (15-37) IU/L ALT 31 (14-63) IU/L Alkaline Phosphatase 121 H (46-116) U/L Total Protein 8.3 H (6.4-8.2) g/dL Albumin 3.5 (3.4-5.0) g/dL Globulin 4.8 H (2.6-4.0) g/dL Albumin/Globulin Ratio 0.7 L (0.9-1.6) Lipase 225 (73-393) U/L HCG, Qual (NEG) Urine Color YELLOW Urine Appearance CLOUDY Urine pH 8.5 H (5.0-8.0) Ur Specific [place] 1.015 (1.001-1.035) Urine Protein 100 H (NEGATIVE) mg/dL Urine Glucose (UA) NEGATIVE (NEGATIVE) mg/dL Urine Ketones NEGATIVE (NEGATIVE) mg/dL Urine Occult Blood NEGATIVE (NEGATIVE) Urine Nitrite NEGATIVE (NEGATIVE) Urine Bilirubin NEGATIVE (NEGATIVE) Urine Urobilinogen 0.2 (<2.0) EU/dL Ur Leukocyte Esterase NEGATIVE (NEGATIVE) Urine RBC NONE SEEN (0-2/HPF) Urine WBC 0-1 (0-5/HPF) Ur Epithelial Cells MODERATE (NONE-FEW) Urine Bacteria RARE (NEGATIVE) 05/08/21 Range/Units 08:15 WBC (4.0-11.0) K/uL RBC (4.30-5.90) M/uL Hgb (12.0-16.0) g/dL Hct (36.0-46.0) % MCV (80.0-98.0) fL MCH (27.0-32.0) pg MCHC (31.0-37.0) g/dL RDW Std Deviation (28.0-62.0) fl RDW Coeff of Brian (11.0-15.0) % Plt Count (150-400) K/uL MPV (7.40-12.00) fL Neut % (Auto) (48.0-80.0) % Lymph % (Auto) (16.0-40.0) % [place] % (Auto) (0.0-15.0) % Eos % (Auto) (0.0-7.0) % Baso % (Auto) (0.0-1.5) % Neut # (Auto) (1.4-5.7) K/uL Lymph # (Auto) (0.6-2.4) K/uL [place] # (Auto) (0.0-0.8) K/uL Eos # (Auto) (0.0-0.7) K/uL Baso # (Auto) (0.0-0.1) K/uL Nucleated RBC % /100WBC Nucleated RBCs # K/uL Sodium (136-145) mmol/L Potassium (3.5-5.1) mmol/L Chloride (98-107) mmol/L Carbon Dioxide (21.0-32.0) mmol/L BUN (7.0-18.0) mg/dL Creatinine (0.6-1.0) mg/dL Est Cr Clr Drug Dosing mL/min Estimated GFR (MDRD) ml/min Glucose (74-106) mg/dL Calcium (8.5-10.1) mg/dL Total Bilirubin (0.2-1.0) mg/dL AST (15-37) IU/L ALT (14-63) IU/L Alkaline Phosphatase (46-116) U/L Total Protein (6.4-8.2) g/dL Albumin (3.4-5.0) g/dL Globulin (2.6-4.0) g/dL Albumin/Globulin Ratio (0.9-1.6) Lipase (73-393) U/L HCG, Qual NEGATIVE (NEG) Urine Color Urine Appearance Urine pH (5.0-8.0) Ur Specific [place] (1.001-1.035) Urine Protein (NEGATIVE) mg/dL Urine Glucose (UA) (NEGATIVE) mg/dL Urine Ketones (NEGATIVE) mg/dL Urine Occult Blood (NEGATIVE) Urine Nitrite (NEGATIVE) Urine Bilirubin (NEGATIVE) Urine Urobilinogen (<2.0) EU/dL Ur Leukocyte Esterase (NEGATIVE) Urine RBC (0-2/HPF) Urine WBC (0-5/HPF) Ur Epithelial Cells (NONE-FEW) Urine Bacteria (NEGATIVE) Meds: Medications Generic Name Dose Route Start Last Admin Trade Name Brenda PRN Reason Stop Dose Admin Sodium Chloride 10 ml 05/08/21 08:42 05/08/21 09:20 Sodium Chloride 0.9% 10 Ml Syringe FLUSH 10 ml ASDIRECTED PRN Administration Keep Vein Open Sodium Chloride 2.5 ml 05/08/21 08:42 05/08/21 09:20 Sodium Chloride 0.9% 2.5 Ml Syringe FLUSH 2.5 ml ASDIRECTED PRN Administration Keep Vein Open Discontinued Medications Generic Name Dose Route Start Last Admin Trade Name Brenda PRN Reason Stop Dose Admin Sodium Chloride 1,000 mls @ 1,000 mls/hr 05/08/21 08:51 05/08/21 09:00 Normal Saline IV 05/08/21 09:50 1,000 mls/hr .Bolus ONE Administration Ketorolac Tromethamine 15 mg 05/08/21 08:43 05/08/21 09:00 Ketorolac 30 Mg/Ml Sdv IVPUSH 05/08/21 08:44 15 mg ONETIME ONE Administration Ondansetron HCl 4 mg 05/08/21 08:43 05/08/21 09:00 Ondansetron 4 Mg/2 Ml Sdv IVPUSH 05/08/21 08:44 4 mg ONETIME ONE Administration Departure - Departure Time of Disposition: 10:21 Disposition: Home, Self-Care 01 Condition: Good Clinical Impression: Muscle strain, Back pain - Discharge Information Prescriptions: Cyclobenzaprine [Flexeril] 10 mg PO TID PRN #14 tab PRN Reason: Muscle Spasm - Painful Instructions: Muscle Strain, [id number], Acute Back Pain, Adult Forms: ED Department Discharge Additional Instructions: Rest. Stretch. Increase range of motion gradually. Your prescription went to [facility]. [facility] - Primary Care [address] [place] [id number] [facility] [address] [place] [id number] The following information is given to patients seen in the emergency department who are being discharged to home. This information is to outline your options for follow-up care. We provide all patients seen in our emergency department with a follow-up referral. The need for follow-up, as well as the timing and circumstances, are variable d epending upon the specifics of your emergency department visit. If you don't have a primary care physician on staff, we will provide you with a referral. We always advise you to contact your personal physician following an emergency department visit to inform them of the circumstance of the visit and for follow-up with them and/or the need for any referrals to a consulting specialist. The emergency department will also refer you to a specialist when appropriate. This referral assures that you have the opportunity for follow-up care with a specialist. All of these measure are taken in an effort to provide you with optimal care, which includes your follow-up. Under all circumstances we always encourage you to contact your private physician who remains a resource for coordinating your care. When calling for follow-up care, please make the office aware that this follow-up is from your recent emergency room visit. If for any reason you are refused follow-up, please contact the [facility] Emergency Department at and asked to speak to the emergency department charge nurse. Sepsis Event Note (ED) - Evaluation Sepsis Screening Result: No Definite Risk - Focused Exam Vital Signs: Vital Signs Temp Pulse Resp BP 05/08/21 08:04 36.8 C 77 16 151/92 H - My Orders Last 24 Hours: My Active Orders 05/08/21 08:42 Sodium Chloride 0.9% [Saline Flush] 10 ml FLUSH ASDIRECTED PRN Sodium Chloride 0.9% [Saline Flush] 2.5 ml FLUSH ASDIRECTED PRN Saline Lock Insert [OM.PC] Stat - Assessment/Plan Last 24 Hours: My Active Orders 05/08/21 08:42 Sodium Chloride 0.9% [Saline Flush] 10 ml FLUSH ASDIRECTED PRN Sodium Chloride 0.9% [Saline Flush] 2.5 ml FLUSH ASDIRECTED PRN Saline Lock Insert [OM.PC] Stat
[2021-05-08 09:22] LABS: BLOOD UREA NITROGEN,BUN 13 mg/dL (7.0-18.0); CARBON DIOXIDE,CO2 29.1 mmol/L (21.0-32.0); CHLORIDE,CL 105 mmol/L (98-107); GLUCOSE RANDOM 91 mg/dL (74-106); LIPASE 225 U/L (73-393); POTASSIUM,K 4.1 mmol/L (3.5-5.1); SODIUM,NA 140 mmol/L (136-145)
--- NOTE | 2021-05-08 10:00 | CT ---
INDICATION: Flank pain COMPARISON: June 14, 2016 TECHNIQUE: CT examination of the abdomen and pelvis was performed without intravenous contrast. Thin section axial images were obtained from the lung bases through the pubic symphysis. Oral contrast was not administered. Please note that all CT scans at this facility use dose modulation, iterative reconstruction, and/or weight-based dosing when appropriate to reduce radiation dose to as low as reasonably achievable. FINDINGS: LUNG BASES: The lung bases as visualized appear normal. The heart size is normal at the lung bases. LIVER/BILIARY SYSTEM:No focal hepatic mass or biliary ductal dilatation.The gall bladder appears normal. ADRENALS: Normal non-contrast appearance KIDNEYS, URETERS and BLADDER:The kidneys appear normal given lack of intravenous contrast. No visible mass, calculus or hydronephrosis. The ureters and bladder as visualized appear normal. There is no indication of current or recent obstructive uropathy. SPLEEN:Normal non-contrast appearance. PANCREAS: Normal non-contrast appearance. RETROPERITONEUM and MESENTERY: There is no mass, adenopathy or aortic aneurysm. GASTROINTESTINAL SYSTEM: There is no evidence of diverticulitis, colitis, mechanical obstruction, or appendicitis. The small bowel as visualized appears normal.Mild fecal retention. This especially true in the rectosigmoid area. PELVIS: IUD normally located.. OSSEOUS STRUCTURES and ABDOMINAL WALL: Degenerative changes primarily at L5-S1. 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 OTHER: No free fluid or free air. IMPRESSION: 1. There is no indication of nephrolithiasis and no finding of current or recent obstructive uropathy. 2. No specific visibly etiology for flank pain. 3. Incidental nonacute appearing findings as discussed in the body of the report. Please note that all CT scans at this facility use dose modulation, iterative reconstruction, and/or weight-based dosing when appropriate to reduce radiation dose to as low as reasonably achievable. Dictated by Rikki Salmeron MD @ 05/08/2021 9:58:51 AM (Electronically Signed)
[2021-05-08 10:33] VITALS: BP 124/77; PULSE 72
== END 2021-05-08 10:33 | disposition home or self-care (01) ==
LOC: MW.ED 08:00
DX: S39.012A Strain of muscle, fascia and tendon of lower back, initial encounter (principal); I10 Essential (primary) hypertension; E66.9 Obesity, unspecified; Z68.36 Body mass index [BMI] 36.0-36.9, adult; Z79.82 Long term (current) use of aspirin; Z79.899 Other long term (current) drug therapy
CPT/HCPCS: 36415; 74176; 80053; 81001; 83690; 84703; 85025; 96374; 96375; 99284; J1885; J2405; J7030

== ENCOUNTER 2021-05-26 07:13 | Emergency (ER) | payer BC ==
[2021-05-26] MEDS ORDERED: Acetaminophen 325 MG Tab PO ONE (07:50)
[2021-05-26] MEDS ORDERED: Ibuprofen 600 MG Tab PO ONE (07:50)
[2021-05-26 08:11] LABS: CORONAVIRUS COVID-19 NAA NEGATIVE (NEGATIVE); INFLUENZA A NAA POSITIVE (NEGATIVE); INFLUENZA B NAA NEGATIVE (NEGATIVE)
[2021-05-26 09:11] VITALS: BP 144/94; PULSE 105
== END 2021-05-26 09:08 | disposition home or self-care (01) ==
LOC: MW.ED 07:13
DX: J10.1 Influenza due to other identified influenza virus with other respiratory manifestations (principal); I10 Essential (primary) hypertension; E66.9 Obesity, unspecified; Z68.39 Body mass index [BMI] 39.0-39.9, adult; Z79.899 Other long term (current) drug therapy; Z20.822 Contact with and (suspected) exposure to COVID-19
CPT/HCPCS: 0240U; 99284; A9270

== ENCOUNTER 2022-02-08 12:57 | Emergency (ER) | payer BC ==
[2022-02-08] MEDS ORDERED: Dexamethasone 10 MG/ML SDV IVPUSH ONE (14:35)
[2022-02-08] MEDS ORDERED: Ketorolac 30 MG/ML SDV IVPUSH ONE (14:35)
[2022-02-08] MEDS ORDERED: HYDROmorphone 1 MG/ML Syringe IVPUSH ONE (14:35)
[2022-02-08 15:41] VITALS: BP 130/67; PULSE 76
== END 2022-02-08 15:41 | disposition home or self-care (01) ==
LOC: MW.ED 12:57
DX: M54.41 Lumbago with sciatica, right side (principal); I10 Essential (primary) hypertension; E66.9 Obesity, unspecified; Z68.36 Body mass index [BMI] 36.0-36.9, adult; Z79.899 Other long term (current) drug therapy
CPT/HCPCS: 96374; 96375; 99283; J1100; J1170; J1885

== ENCOUNTER 2022-02-16 17:13 | Emergency (ER) | payer BC ==
[2022-02-16] MEDS ORDERED: Ketorolac 60 MG/2 ML SDV IM ONE (18:27)
== END 2022-02-16 19:01 | disposition home or self-care (01) ==
LOC: MW.ED 17:13
DX: M79.661 Pain in right lower leg (principal); M79.621 Pain in right upper arm; M54.50 Low back pain, unspecified; M54.6 Pain in thoracic spine
CPT/HCPCS: 96372; 99283; J1885

== ENCOUNTER 2022-04-21 00:43 | Emergency (ER) | payer BC ==
[2022-04-21] MEDS ORDERED: diphenhydrAMINE 50 MG/ML SDV IVPUSH ONE (01:10)
[2022-04-21] MEDS ORDERED: methylPREDNISolone Sodium Succinate 125 MG/2 ML SDV IVPUSH ONE (01:10)
[2022-04-21 01:51] VITALS: BP 146/84
[2022-04-21 02:24] VITALS: PULSE 67
== END 2022-04-21 02:22 | disposition home or self-care (01) ==
LOC: MW.ED 00:43
DX: L29.9 Pruritus, unspecified (principal); I10 Essential (primary) hypertension; E66.9 Obesity, unspecified; Z68.39 Body mass index [BMI] 39.0-39.9, adult; Z88.5 Allergy status to narcotic agent; Z79.899 Other long term (current) drug therapy
CPT/HCPCS: 96374; 96375; 99283; J1200; J2930; 99284

== ENCOUNTER 2022-10-01 23:19 | Emergency (ER) | payer SELFPAY ==
[2022-10-02 00:01] VITALS: BP 109/64
[2022-10-02 01:32] LABS: CORONAVIRUS COVID-19 NAA POSITIVE (NEGATIVE); INFLUENZA A NAA NEGATIVE (NEGATIVE); INFLUENZA B NAA NEGATIVE (NEGATIVE); RESPIRATORY SYNCYTIAL VIR NAA NEGATIVE (NEGATIVE)
[2022-10-02 03:24] VITALS: PULSE 77
== END 2022-10-02 03:23 | disposition home or self-care (01) ==
LOC: MW.ED 23:19
DX: U07.1 COVID-19 (principal); I10 Essential (primary) hypertension; E66.9 Obesity, unspecified; Z68.43 Body mass index [BMI] 50.0-59.9, adult; Z88.5 Allergy status to narcotic agent; Z79.899 Other long term (current) drug therapy
CPT/HCPCS: 0241U; 99284; 99283